=== PATIENT | male | born 1965 | race Caucasian/White ===

== ENCOUNTER 2019-08-14 11:30 | Inpatient (IN) | payer BC ==
[2019-08-14] VITALS (9 sets, daily range): BP systolic 113–153; BP diastolic 75–98
[~2019-08-14] VITALS: Ht 180 cm; Wt 92.5 kg
[2019-08-14] MEDS ORDERED: NS IV 1000 ML 1,000 ML IV SCH (11:44)
[2019-08-14] MEDS ORDERED: NS IV 1000 ML 1,000 ML IV ONE (11:44)
[2019-08-14] MEDS ORDERED: NS IV 500 ML 500 ML IV ONE (11:44)
[2019-08-14] MEDS ORDERED: AZITHROMYCIN INJECTION 500 MG in NS (IVPB) 250 ML IV ONE (11:45)
[2019-08-14] MEDS ORDERED: cefTRIAXone FOR IV USE 1,000 MG in WATER (STERILE) FOR INJECTION 10 ML IV ONE (11:45)
--- NOTE | 2019-08-14 11:50 | ED Chest Pain ---
General Chief Complaint: Cardiac/General Problems Stated Complaint: CP Source: patient, EMS Exam Limitations: no limitations History of Present Illness Date Seen by Provider: Aug 14, 2019 Time Seen by Provider: 11:29 Initial Comments Patient presents to ER by EMS from urgent care where he presented this morning because of for 5 days progressive malaise with fever yesterday. Today he started experiencing left-sided chest pain radiating to his left shoulder but not his neck area and no sweats nausea or vomiting. No previous history of coronary disease. Does not follow with a doctor nor take any routine medications. He quit smoking 4 months ago when his . He drinks beer and whiskey usually daily but he says only a couple drinks in the evening. Urgent care obtain an EKG demonstrating atrial fibrillation with rapid ventricular response and gave him 325 mg of aspirin. He said his pain was not significant enough to want anything for nitroglycerin. Vital signs were stable per EMS. He says he's been told in the past he has high blood pressure when he goes to the health fair at his work. Allergies and Home Medications Allergies Coded Allergies: levofloxacin (Verified Adverse Reaction, Unknown, nausea, vomiting, shaking, 08/14/19) Patient Home Medication List Home Medication List Reviewed: Yes Review of Systems Review of Systems Constitutional: chills, fever (yesterday), malaise, weakness EENTM: No Blurred Vision, No Double Vision Respiratory: Cough; Denies Shortness of Air Cardiovascular: See HPI, Chest Pain; Denies Edema; Irregular Heart Rate, Palpitations; Denies Syncope Gastrointestinal: Denies Abdomen Distended, Denies Abdominal Pain Genitourinary: Denies Burning, Denies Discharge Musculoskeletal: No back pain, No joint pain Skin: No pruritus, No rash Psychiatric/Neurological: Denies Headache, Denies Numbness, Denies Paresthesia All Other Systems Reviewed Negative Unless Noted: Yes Past Kqntiyp-Zrfvby-Jfgusz Hx Patient Social History Alcohol Use: Regular Use Alcohol Beverage of Choice: Beer, Whiskey Recreational Drug Use: No Smoking Status: Former Smoker Type Used: Cigarettes Former Smoker, Quit: Mar 26, 2019 Physical Exam Vital Signs Vital Signs - First Documented 08/14/19 11:49 Temp 36.6 Pulse 156 Resp 22 B/P (MAP) 131/100 (110) Pulse Ox 97 Capillary Refill : Height, Weight, BMI Height: '" Weight: lbs. oz. kg; BMI Method: General Appearance: WD/WN, Anxious HEENT: PERRL/EOMI, Pharynx Normal; No Moist Mucous Membranes Neck: Full Range of Motion, Normal Inspection, Non Tender, Supple Respiratory: Chest Non Tender, No Accessory Muscle Use, No Respiratory Distress, Rales (few scattered bases) Cardiovascular: No JVD, Normal Peripheral Pulses, Irregularly Irregular, Tachycardia Gastrointestinal: Normal Bowel Sounds, Non Tender, Soft Extremity: Normal Capillary Refill, Normal Inspection, Non Tender, No Pedal Edema Neurologic/Psychiatric: Alert, Oriented x3 Skin: Normal Color, Warm/Dry Focused Exam Sepsis Stage: Sepsis Possible Source: Pulmonary Lactate Level 08/14/19 11:45: Lactic Acid Level 1.46 Time of Focused Exam: 13:17 Respiratory: Lungs Clear, Normal Breath Sounds Cardiovascular: Irregularly Irregular, Tachycardia Capillary Refill: Less Than 3 Seconds Peripheral Pulses: 2+ Radial Pulses (R), 2+ Radial Pulses (L) Skin: normal color, warm/dry Lactic Acid Level Laboratory Tests Test 08/14/19 11:45 Lactic Acid Level 1.46 MMOL/L (0.50-2.00) Within 3hrs of presentation: Admin fluids, Admin ABX, Blood cultures prior to ABX's, Focus exam, Lactate level Progress/Results/Core Measures Results/Orders Lab Results Laboratory Tests Test 08/14/19 11:36 08/14/19 11:45 08/14/19 12:25 Range/Units White Blood Count 23.5 H 4.3-11.0 10^3/uL Red Blood Count 5.41 4.35-5.85 10^6/uL Hemoglobin 16.4 13.3-17.7 G/DL Hematocrit 49 40-54 % Mean Corpuscular Volume 91 80-99 FL Mean Corpuscular Hemoglobin 30 25-34 PG Mean Corpuscular Hemoglobin Concent 33 32-36 G/DL Red Cell Distribution Width 12.6 10.0-14.5 % Platelet Count 208 130-400 10^3/uL Mean Platelet Volume 11.5 H 7.4-10.4 FL Neutrophils (%) (Auto) 77 H 42-75 % Lymphocytes (%) (Auto) 11 L 12-44 % Monocytes (%) (Auto) 11 0-12 % Eosinophils (%) (Auto) 0 0-10 % Basophils (%) (Auto) 0 0-10 % Neutrophils # (Auto) 18.2 H 1.8-7.8 X 10^3 Lymphocytes # (Auto) 2.6 1.0-4.0 X 10^3 Monocytes # (Auto) 2.6 H 0.0-1.0 X 10^3 Eosinophils # (Auto) 0.0 0.0-0.3 10^3/uL Basophils # (Auto) 0.0 0.0-0.1 10^3/uL Neutrophils % (Manual) 85 % Lymphocytes % (Manual) 9 % Monocytes % (Manual) 6 % Blood Morphology Comment NORMAL Prothrombin Time 14.6 12.2-14.7 SEC INR Comment 1.1 0.8-1.4 Activated Partial Thromboplast Time 32 24-35 SEC Sodium Level 139 135-145 MMOL/L Potassium Level 4.3 3.6-5.0 MMOL/L Chloride Level 106 98-107 MMOL/L Carbon Dioxide Level 23 21-32 MMOL/L Anion Gap 10 5-14 MMOL/L Blood Urea Nitrogen 18 7-18 MG/DL Creatinine 0.90 0.60-1.30 MG/DL Estimat Glomerular Filtration Rate > 60 BUN/Creatinine Ratio 20 Glucose Level 116 H 70-105 MG/DL Calcium Level 9.7 8.5-10.1 MG/DL Corrected Calcium 9.9 8.5-10.1 MG/DL Total Bilirubin 1.3 H 0.1-1.0 MG/DL Aspartate Amino Transf (AST/SGOT) 16 5-34 U/L Alanine Aminotransferase (ALT/SGPT) 27 0-55 U/L Alkaline Phosphatase 132 40-136 U/L Troponin I < 0.028 <0.028 NG/ML Total Protein 7.0 6.4-8.2 GM/DL Albumin 3.8 3.2-4.5 GM/DL Lactic Acid Level 1.46 0.50-2.00 MMOL/L Urine Color YELLOW Urine Clarity CLEAR Urine pH 6.0 5-9 Urine Specific [place] >=1.030 1.016-1.022 Urine Protein TRACE H NEGATIVE Urine Glucose (UA) NEGATIVE NEGATIVE Urine Ketones NEGATIVE NEGATIVE Urine Nitrite NEGATIVE NEGATIVE Urine Bilirubin 1+ H NEGATIVE Urine Urobilinogen 4.0 < = 1.0 MG/DL Urine Leukocyte Esterase NEGATIVE NEGATIVE Urine RBC (Auto) NEGATIVE NEGATIVE Urine RBC NONE /HPF Urine WBC NONE /HPF Urine Crystals PRESENT H /LPF Urine Amorphous Sediment FEW KASEY URATES H /LPF Urine Bacteria FEW H /HPF Urine Casts NONE /LPF Urine Mucus MODERATE H /LPF Urine Culture Indicated CULTURE PENDING Micro Results Microbiology 08/14/19 Influenza Types A,B Antigen (QING) - Final, Complete My Orders Orders - MEGHAN KING Cbc With Automated Diff (08/14/19 11:42) Comprehensive Metabolic Panel (08/14/19 11:42) Blood Culture (08/14/19 11:42) Sputum Culture (08/14/19 11:42) Urinalysis (08/14/19 11:42) Urine Culture (08/14/19 11:42) Protime With Inr (08/14/19 11:42) Partial Thromboplastin Time (08/14/19 11:42) Chest 1 View, Ap/Pa Only (08/14/19 11:42) Ed Iv/Invasive Line Start (08/14/19 11:42) Ed Iv/Invasive Line Start (08/14/19 11:42) Vital Signs Adult Sepsis Patie Q15M (08/14/19 11:42) O2 (08/14/19 11:42) Remove Rings In Anticipation O (08/14/19 11:42) Lactic Acid Analyzer (08/14/19 11:42) Ed Iv/Invasive Line Start (08/14/19 11:42) Ed Iv/Invasive Line Start (08/14/19 11:44) Ns Iv 500 Ml (Sodium Chloride 0.9%) (08/14/19 11:44) Ns Iv 1000 Ml (Sodium Chloride 0.9%) (08/14/19 11:44) Ns Iv 1000 Ml (Sodium Chloride 0.9%) (08/14/19 11:44) Ceftriaxone For Iv Use (Rocephin For I (08/14/19 11:45) Azithromycin Injection (Zithromax Inject (08/14/19 11:45) Manual Differential (08/14/19 11:36) Influenza A And B Antigens (08/14/19 12:36) Troponin I (08/14/19 13:07) Nitroglycerin 0.4 Mg Btl 25's (Nitrostat (08/14/19 13:15) Diltiazem Drip Pre-Mix (Cardizem Drip Pr (08/14/19 13:15) Diltiazem Injection (Cardizem Injection) (08/14/19 13:15) Morphine Injection (Morphine Injection (08/14/19 13:10) Apixaban Tablet (Eliquis Tablet) (08/14/19 13:30) Continuous Ekg Monitoring (08/14/19 13:21) Ekg Tracing (08/14/19 13:21) Ekg Tracing (08/14/19 13:46) Medications Given in ED Current Medications Medications Dose Ordered Sig/Kolby Route Start Time Stop Time Status Last Admin Dose Admin Apixaban 5 mg ONCE ONCE PO 08/14/19 13:30 08/14/19 13:31 DC 08/14/19 13:32 5 MG Azithromycin 500 mg/Sodium Chloride 250 ml @ 250 mls/hr ONCE ONCE IV 08/14/19 11:45 08/14/19 12:44 DC 08/14/19 12:33 250 MLS/HR Ceftriaxone Sodium 1000 mg/ Sterile Water 10 ml @ 200 mls/hr ONCE ONCE IV 08/14/19 11:45 08/14/19 11:48 DC 08/14/19 12:33 200 MLS/HR Diltiazem HCl 20 mg ONCE ONCE IVP 08/14/19 13:15 08/14/19 13:16 DC 08/14/19 13:32 20 MG Sodium Chloride 500 ml @ 0 mls/hr Q0M ONCE IV 08/14/19 11:44 08/14/19 11:48 DC 08/14/19 13:49 0 MLS/HR Vital Signs/I&O 08/14/19 11:49 Temp 36.6 Pulse 156 Resp 22 B/P (MAP) 131/100 (110) Pulse Ox 97 Progress Progress Note #1: Time: 12:33 Progress Note Patient still does not want anything for chest pain. Aspirin has already been administered. We have discussed risks, benefits and alternatives to anticoagulation and patient has consented. We have discussed that we are going to look for underlying source of his A. fib to include coronary and infection. Influenza swab obtained. Septic workup and fluids 2500 cc total to be given. He has already had a liter started by EMS. Progress Note #2: Time: 13:27 Progress Note The patient's having worsening chest pain in his left chest worse on deep inspiration and lancinating from his left shoulder towards his mediastinum. Plan to give him morphine. Since we started the Cardizem drip as he is not responding to just IV fluids alone I would like to protect his blood pressure and not give him nitroglycerin. Blood pressure is 129/97 presently. We will give him some Eliquis as well. He is already received aspirin. Still afebrile. Progress Note #3: Time: 13:55 Progress Note Patient's pain is improved with morphine. Suspect that it may be related to pleurisy. Patient's heart rate is now better stable, regular rate of 86 and an EKG was obtained demonstrating a regular rhythm. Initial ECG Impression Date: Aug 14, 2019 Initial ECG Impression Time: 11:36 Initial ECG Rate: 144 Initial ECG Rhythm: A Fib/Flutter Initial ECG Intervals: QT (471) Initial ECG Impression: Normal, Nonspecific Changes Initial ECG Comparisson: No Previous ECG Available Comment Atrial fibrillation with rapid ventricular response. EKG #1: EKG Time: 13:25 Rate: 136 Rhythm: A Fib/Flutter Intervals: QT (470) ECG Comparisson: Unchanged ECG Impression: Atrial Fibrillation w/RVR Comment Without credible ST elevation or depression. Atrial fibrillation and rapid ventricular response. EKG #2: EKG Time: 13:42 Rate: 87 Rhythm: Normal Sinus Intervals: Normal, QT (535) ECG Comparisson: No Previous ECG Available ECG Impression: Normal, Nonspecific Changes Comment Sinus rhythm with prolonged QT interval. Negative for clinically relevant ST elevation or depression. Patient has a tremor which is picked up on the EKG and have similar appearance to atrial flutter. Diagnostic Imaging Diagonstic Imaging: Xray Plain Films/CT/US/NM/MRI: chest (1v) Comments NAME: MAY MERCADO MED REC#: [id number] PT STATUS: REG ER : 1965 PHYSICIAN: MEGHAN KING MD ADMIT DATE: 08/14/19/ER Signed Date of Exam:08/14/19 CHEST 1 VIEW, AP/PA ONLY Indication: Chest pain Portable chest 12:15 PM Heart size and pulmonary vascularity are normal. Lungs are clear. There are no effusions or pneumothoraces. IMPRESSION: Negative chest Dictated by: Dictated on workstation # [id number] Dict: 08/14/19 1227 Trans: 08/14/19 1227 [id number] Interpreted by: ALVARO ARAYA MD Electronically signed by: ALVARO ARAYA MD 08/14/197 Reviewed: Reviewed by Me Departure Communication (Admissions) Time/Spoke to Admitting Phy: 14:00 Discussed case lab imaging and selection of antibiotics as well as placed on stepdown on Cardizem for A. fib with RVR with Dr. Perkins and he agrees to admit the patient. Time/Spoke to Consulting Phy: 13:15 Discussed the case lab presentation with Dr. Amezquita and he agrees with Jovany Ching drip and aspirin. He will consult on the patient. Impression Primary Impression: Chest pain Qualified Codes: R07.9 - Chest pain, unspecified Additional Impressions: Atrial fibrillation with rapid ventricular response Pneumonia Qualified Codes: J18.9 - Pneumonia, unspecified organism Sepsis Qualified Codes: A41.9 - Sepsis, unspecified organism Disposition: ADMITTED INPATIENT Condition: Stable Admissions Decision to Admit Reason: Admit from ER (General) Decision to Admit/Date: Aug 14, 2019 Time/Decision to Admit Time: 13:14 Departure-Patient Inst. Referrals: KATLYN LANCASTER (PCP) Primary Care Physician TRINO,LOCAL PHYSICIAN (Family) Primary Care Physician MEGHAN KING Aug 14, 2019 11:50
[2019-08-14 11:51] LABS: BASOPHILS % (AUTO) 0 % (0-10); EOSINOPHILS % (AUTO) 0 % (0-10); HEMATOCRIT 49 % (40-54); HEMOGLOBIN 16.4 G/DL (13.3-17.7); LYMPHOCYTES # (AUTO) 2.6 X 10^3 (1.0-4.0); LYMPHOCYTES % (AUTO) 11 % (12-44); MEAN CORPUSCULAR HEMOGLOBIN 30 PG (25-34); MEAN CORPUSCULAR HGB CONC 33 G/DL (32-36); MEAN CORPUSCULAR VOLUME 91 FL (80-99); MEAN PLATELET VOLUME 11.5 FL (7.4-10.4); MONOCYTES # (AUTO) 2.6 X 10^3 (0.0-1.0); MONOCYTES % (AUTO) 11 % (0-12); NEUTROPHILS # (AUTO) 18.2 X 10^3 (1.8-7.8); NEUTROPHILS % (AUTO) 77 % (42-75); PLATELET COUNT 208 10^3/uL (130-400); RED CELL DISTRIBUTION WIDTH 12.6 % (10.0-14.5); WHITE BLOOD COUNT 23.5 10^3/uL (4.3-11.0)
[2019-08-14 12:05] LABS: INR 1.1 (0.8-1.4); PROTHROMBIN TIME PATIENT 14.6 SEC (12.2-14.7)
[2019-08-14] MEDS ORDERED: BUPR150T7 PO (12:10)
[2019-08-14 12:11] LABS: ALANINE AMINOTRANSFERASE 27 U/L (0-55); ALBUMIN 3.8 GM/DL (3.2-4.5); ALKALINE PHOSPHATASE 132 U/L (40-136); BILIRUBIN,TOTAL 1.3 MG/DL (0.1-1.0); BUN/CREATININE RATIO 20; CALCIUM 9.7 MG/DL (8.5-10.1); CARBON DIOXIDE 23 MMOL/L (21-32); CHLORIDE 106 MMOL/L (98-107); GFR ESTIMATED > 60; GLUCOSE 116 MG/DL (70-105); POTASSIUM 4.3 MMOL/L (3.6-5.0); SODIUM 139 MMOL/L (135-145)
--- NOTE | 2019-08-14 12:29 | Diagnostic Imaging Report ---
Indication: Chest pain Portable chest 12:15 PM Heart size and pulmonary vascularity are normal. Lungs are clear. There are no effusions or pneumothoraces. IMPRESSION: Negative chest Dictated by: Dictated on workstation # [id number]
[2019-08-14 12:30] LABS: CLARITY,URINE CLEAR; COLOR,URINE YELLOW; GLUCOSE, URINE (UA) NEGATIVE (NEGATIVE); KETONES,URINE NEGATIVE (NEGATIVE); LEUKOCYTE ESTERASE ,URINE NEGATIVE (NEGATIVE); NITRITE,URINE NEGATIVE (NEGATIVE); PROTEIN,URINE TRACE (NEGATIVE)
[2019-08-14 12:31] LABS: LYMPHOCYTES % (MANUAL) 9 %; MONOCYTES % (MANUAL) 6 %; NEUTROPHILS % (MANUAL) 85 %; RBC MORPH NORMAL
[2019-08-14 12:46] LABS: BACTERIA,URINE FEW /HPF
[2019-08-14 12:47] LABS: AMORPHOUS SEDIMENT,UR FEW AMOR URATES /LPF; BILIRUBIN,URINE 1+ (NEGATIVE)
[2019-08-14] MEDS ORDERED: morphine INJ 10 MG/ML 1ML (SYR OR VIAL) IVP STA (13:10)
[2019-08-14] MEDS ORDERED: NITROGLYCERIN 0.4 MG SL TABS BTL 25'S SL PRN ×2 (13:15→15:15)
[2019-08-14] MEDS ORDERED: APIXABAN 5 MG (ELIQUIS) TABLET PO ONE (13:30)
[2019-08-14] MEDS: dilTIAZem DRIP PRE-MIX 125 ML IV SCH ×2 (13:32→13:49)
[2019-08-14] MEDS ORDERED: 1/2 NS W/KCL 20 MEQ/L 1,000 ML IV ONE (14:53)
[2019-08-14] MEDS ORDERED: ONDANSETRON 4 MG/2 ML (SDV) Z0FRAN IV PRN (15:00)
[2019-08-14] MEDS ORDERED: CATHETER FLUSH 10 ML SYR IV PRN (15:00)
[2019-08-14] MEDS ORDERED: LORazepam INJ 2 MG/ML (ATIVAN) VIAL IV PRN (15:00)
[2019-08-14] MEDS ORDERED: ACETAMINOPHEN 500 MG TAB (TYLENOL) PO PRN (15:00)
[2019-08-14] MEDS ORDERED: morphine INJ 4 MG/ML 1 ML (VIAL/SYRINGE) IV PRN (15:15)
[2019-08-14] MEDS ORDERED: ANTACID SUSP 30 ML UDC (MYLANTA) PO PRN (15:15)
[2019-08-14] MEDS: 1/2 NS W/KCL 20 MEQ/L 1,000 ML IV SCH ×2 (15:47→21:22)
--- NOTE | 2019-08-14 16:24 | NUR ---
ENTERED MED REC USING THE EXT MED HISTORY WELL CALLING URGENT CARE (HE USES THE MOBILE PROVIDER) TO COMPLETE THE MED REC. WELLBUTRIN 150 HAS BEEN PICKED UP RECENTLY HOWEVER THE PT HAS ALSO TAKEN WELLBUTRIN 300MG AND THAT WAS PICKED UP WITHIN THE LAST MONTH. I PUT IN A CALL TO URGENT CARE TO MAKE SURE THE LOWER DOSE WAS CORRECT AND TO SEE IF THE INTENTION WAS FOR THE PT TO TAKE BOTH STRENGTHS. URGENT CARE WAS GOING TO CALL ME BACK SOON THEY COULD FIND OUT. I WILL UPDATE THE MED REC AND THE NOTE IF NEEDED Addendum: 08/16/19 at 0718 by KAMALJIT BERNAL CPhT SPOKE WITH AND HE CONFIRMED THAT THE PT HAD BEEN SWITCHED FROM THE 300MG DOWN TO THE 150MG BC THE PT IS WANTING TO QUIT TAKING AND THEY ARE EVENTUALLY GOING TO WEAN HIM OFF
--- NOTE | 2019-08-14 16:29 | Consultation-Cardiology ---
HPI-Cardiology Cardiology Consultation: Date of Consultation 08/14/19 Time Seen by a Provider: 16:05 Date of Admission 08-14-2019 Attending Physician Daxa Perkins MD Admitting Physician Cara Hernandez Consulting Physician DIAMOND VUONG HPI: Chief Complaint: A-fib with RVR Mr. Stokes is a 54 year old male admitted to ICU 2 from the ED. He reports he has been feeling unwell since Monday. [place] friend and had a sudden onset of left sided chest pain. He describes it has a sharp, stabbing, pressure pain which was worse with a cough. He states it radiated up into his shoulder. He reports feeling hot and diaphoretic. He states he it has been constant discomfort, which would increase in intensity. No r/t activity or emotional stress. He reports on Monday he developed chills and fever. He reports dysuria on Monday night, but this has resolved. He reports nausea and diarrhea since Monday. He denies any vomiting. He is currently reporting discomfort, localized left sided, with movement. No c/o LE swelling. No c/o syncope or near syncope. States he quit smoking 4 months ago. Reports he drinks nightly, typically 2 beers and occ whiskey. No report of street drug use. Review of Systems-Cardiology Review of Systems Constitutional: chills, fever, malaise Eyes: No vision change Ears/Nose/Throat: No epistaxis, No recent hearing loss, No ulcerations Respiratory: As described under HPI Cardiovascular: As described under HPI Gastrointestinal: As described under HPI Genitourinary: As described under HPI; No hematuria Musculoskeletal: no symptoms reported Skin: No rash on exposed areas, No ulcerations on exposed areas Psychiatric/Neurological: depression; No seizure, No focal weakness, No syncope Hematologic: No bleeding abnormalities All Other Systems Reviewed Negative Unless Noted: Yes URS-Rvxjnp-Urwiwb Hx Patient Social History Alcohol Use: Regular Use Recreational Drug Use: No Smoking Status: Former Smoker Type Used: Cigarettes Recent Foreign Travel: No Recent Infectious Disease Expo: No Immunizations Up To Date Date of Influenza Vaccine: Apr 26, 2019 Past Medical History PMH As described under Assessment. Family Medical History Family Medical History: He reports his mother has CAD with stent placement first diagnosed in her 60's. Allergies and Home Medications Allergies Coded Allergies: levofloxacin (Verified Adverse Reaction, Unknown, nausea, vomiting, shaking, 08/14/19) Home Medications Bupropion HCl 150 Mg Tab.er.24h, 150 MG PO DAILY, (Reported) Patient Home Medication List Home Medication List Reviewed: Yes Physical Exam-Cardiology Physical Exam Vital Signs/I&O 08/15/19 08/15/19 08/15/19 08/15/19 01:00 02:00 04:00 04:00 Temp 36.3 Pulse 75 77 79 Resp 30 29 B/P (MAP) 137/96 (110) 124/88 (100) Pulse Ox 97 97 O2 Delivery Nasal Cannula Nasal Cannula O2 Flow Rate 2.00 2.00 08/15/19 08/15/19 08/15/19 08/15/19 04:27 06:00 06:52 07:00 Pulse 72 74 Resp 32 B/P (MAP) 138/85 (102) Pulse Ox 97 95 O2 Delivery Nasal Cannula Nasal Cannula Room Air O2 Flow Rate 2.00 2.00 08/15/19 08/15/19 08/15/19 08/15/19 07:00 08:00 08:00 09:00 Pulse 79 82 Resp 32 20 B/P (MAP) 141/84 (103) 126/76 (93) Pulse Ox 95 96 97 O2 Delivery Nasal Cannula Nasal Cannula Nasal Cannula Room Air O2 Flow Rate 2.00 2.00 2.00 08/15/19 08/15/19 08/15/19 08/15/19 09:00 10:00 10:42 11:13 Pulse 78 78 Resp 30 23 B/P (MAP) 133/88 (103) 149/87 (107) Pulse Ox 96 98 95 O2 Delivery Nasal Cannula Nasal Cannula Room Air Room Air O2 Flow Rate 2.00 2.00 08/15/19 12:00 Pulse 90 Resp 27 B/P (MAP) 162/95 (117) Pulse Ox 96 O2 Delivery Room Air 08/15/19 00:00 Intake Total 3610 ml Output Total 430 ml Balance 3180 ml Capillary Refill : Less Than 3 Seconds Constitutional: AAO x 3, well-developed, well-nourished HEENT: PERRL, hearing is well preserved, oral hygience is good Neck: No carotid bruit; carotid pulses are 2 + bilaterally Respiratory: No accessory muscle use, No respiratory distress; chest expansion is symmetric, chest is bilaterally symmetric, rhonchi (scattered), other (diminshed) Cardiovascular: irregularly irregular; No JVD; S1 and S2 Gastrointestinal: No tender; soft, round, audible bowel sounds Extremities: no lower extremity edema bilateral Neurologic/Psychiatric: grossly intact (moves all extremities) Skin: No rash on exposed areas, No ulcerations on exposed areas Data Review Labs Laboratory Tests 08/14/19 17:35: Troponin I < 0.028 08/15/19 03:09: White Blood Count 18.1H, Red Blood Count 4.49, Hemoglobin 13.9, Hematocrit 41, Mean Corpuscular Volume 92, Mean Corpuscular Hemoglobin 31, Mean Corpuscular Hemoglobin Concent 34, Red Cell Distribution Width 12.8, Platelet Count 195, Mean Platelet Volume 11.7H, Neutrophils (%) (Auto) 72, Lymphocytes (%) (Auto) 18, Monocytes (%) (Auto) 10, Eosinophils (%) (Auto) 1, Basophils (%) (Auto) 0, Neutrophils # (Auto) 13.0H, Lymphocytes # (Auto) 3.2, Monocytes # (Auto) 1.8H, Eosinophils # (Auto) 0.1, Basophils # (Auto) 0.0, Sodium Level 135, Potassium Level 4.5, Chloride Level 108H, Carbon Dioxide Level 18L, Anion Gap 9, Blood Urea Nitrogen 15, Creatinine 0.69, Estimat Glomerular Filtration Rate > 60, BUN/Creatinine Ratio 22, Glucose Level 95, Calcium Level 8.5, Corrected Calcium 9.1, Phosphorus Level 1.6L, Total Bilirubin 0.8, Aspartate Amino Transf (AST/SGOT) 18, Alanine Aminotransferase (ALT/SGPT) 20, Alkaline Phosphatase 119, B-Type Natriuretic Peptide 73.5, Total Protein 5.8L, Albumin 3.3, Triglycerides Level 91, Cholesterol Level 129, LDL Cholesterol Direct 70, VLDL Cholesterol 18, HDL Cholesterol 39L, Procalcitonin 0.29H, Thyroid Stimulating Hormone (TSH) 0.85 08/15/19 08:14: Urine Opiates Screen POSITIVEH, Urine Oxycodone Screen NEGATIVE, Urine Methadone Screen NEGATIVE, Urine Propoxyphene Screen NEGATIVE, Urine Barbiturates Screen NEGATIVE, Ur Tricyclic Antidepressants Screen NEGATIVE, Urine Phencyclidine S creen NEGATIVE, Urine Amphetamines Screen NEGATIVE, Urine Methamphetamines Screen NEGATIVE, Urine Benzodiazepines Screen POSITIVEH, Urine Cocaine Screen NEGATIVE, Urine Cannabinoids Screen POSITIVEH Microbiology 08/14/19 Urine Culture - Final, Complete NO GROWTH 08/14/19 Blood Culture - Preliminary, Resulted No growth 08/14/19 Influenza Types A,B Antigen (QING) - Final, Complete Radiology NAME: MAY STOKES MED REC#: [id number] PT STATUS: REG ER : 1965 PHYSICIAN: MEGHAN KING MD ADMIT DATE: 08/14/19/ER Signed Date of Exam:08/14/19 CHEST 1 VIEW, AP/PA ONLY Indication: Chest pain Portable chest 12:15 PM Heart size and pulmonary vascularity are normal. Lungs are clear. There are no effusions or pneumothoraces. IMPRESSION: Negative chest Dictated by: Dictated on workstation # [id number] Dict: 08/14/19 1227 Trans: 08/14/19 1227 [id number] Interpreted by: ALVARO ARAYA MD Electronically signed by: ALVARO ARAYA MD 08/14/19 1227 ECG Impression ECG Initial ECG Impression: Atrial Fibrillation w/RVR A/P-Cardiology Assessment/Admission Diagnosis New onset a-fib with RVR (first dx on EKG 08-14-2019) Chest pain of undetermined etiology Probable UTI HTN HLD Tobacco use - quit 4 months ago Daily ETOH usage Depression Discussion and Recomendations New onset of a-fib with RVR - rate control with IV Cardizem OAC for stroke prophylaxis with Eliquis Chest pain of undetermined etiology - no evidence of ACS thus far Echocardiogram to eval structure and function Check TSH Monitor lab - replace electrolytes as indicated Management of UTI per medical services Further recs will be based on his hospital course We would like to thank medical services for this consult Clinical Quality Measures DVT/VTE Risk/Contraindication: Risk Factor Score Per Nursin RFS Level Per Nursing on Admit: 4+=Very High DIAMOND PRESSLEY Aug 14, 2019 16:29
--- NOTE | 2019-08-14 18:32 | Consultation-Cardiology ---
HPI-Cardiology Cardiology Consultation: Date of Consultation 08/14/19 Time Seen by a Provider: 17:50 Date of Admission Attending Physician Daxa Perkins MD Admitting Physician Cara Hernandez Consulting Physician VIVIENNE WRIGHT MD, MA, FACP, FACC, FSCAI, CCDS HPI: Chief Complaint: Reason for consultation: A-fib with RVR HPI Mr. Stokes is a 54 year old male admitted to ICU 2 from the ED. He reports he has been feeling unwell since Monday. [place] his girl friend and had a sudden onset of left sided chest pain. He describes it has a sharp, stabbing, pressure pain which was worse with a cough. He states it radiated up into his shoulder. He reports feeling hot and diaphoretic. He states he it has been constant discomfort, which would increase in intensity. No r/t activity or emotional stress. He reports on Monday he developed chills and fever. He reports dysuria on Monday night, but this has resolved. He reports nausea and diarrhea since Monday. He denies any vomiting. He is currently reporting discomfort, localized left sided, with movement. No c/o LE swelling. No c/o syncope or near syncope. States he quit smoking 4 months ago. Reports he drinks nightly, typically 2 beers and occ whiskey. No report of street drug use. Review of Systems-Cardiology Review of Systems Constitutional: chills, fever, malaise Eyes: No vision change Ears/Nose/Throat: No epistaxis, No recent hearing loss, No ulcerations Respiratory: As described under HPI Cardiovascular: As described under HPI Gastrointestinal: As described under HPI Genitourinary: As described under HPI; No hematuria Musculoskeletal: no symptoms reported Skin: No rash on exposed areas, No ulcerations on exposed areas Psychiatric/Neurological: depression; No seizure, No focal weakness, No syncope Hematologic: No bleeding abnormalities All Other Systems Reviewed Negative Unless Noted: Yes LQG-Hwioml-Grzgky Hx Patient Social History Alcohol Use: Regular Use Recreational Drug Use: No Smoking Status: Former Smoker Type Used: Cigarettes Recent Foreign Travel: No Recent Infectious Disease Expo: No Immunizations Up To Date Date of Influenza Vaccine: Apr 26, 2019 Past Medical History PMH As described under Assessment. Family Medical History Family Medical History: He reports his mother has CAD with stent placement first diagnosed in her 60's. Allergies and Home Medications Allergies Coded Allergies: levofloxacin (Verified Adverse Reaction, Unknown, nausea, vomiting, shaking, 08/14/19) Home Medications Bupropion HCl 150 Mg Tab.er.24h, 150 MG PO DAILY, (Reported) Patient Home Medication List Home Medication List Reviewed: Yes Physical Exam-Cardiology Physical Exam Vital Signs/I&O 08/14/19 08/14/19 08/14/19 08/14/19 11:49 14:42 14:54 15:00 Temp 36.6 Pulse 156 115 119 Resp 22 20 B/P (MAP) 131/100 (110) 140/80 Pulse Ox 97 97 98 O2 Delivery Nasal Cannula O2 Flow Rate 2.00 08/14/19 08/14/19 08/14/19 08/14/19 15:00 15:00 15:04 15:42 Temp 36.6 Pulse 89 115 Resp 18 20 B/P (MAP) 125/86 (99) 140/80 Pulse Ox 98 97 98 O2 Delivery Nasal Cannula Nasal Cannula Nasal Cannula Nasal Cannula O2 Flow Rate 2.00 2.00 2.00 2.00 08/14/19 08/14/19 08/14/19 08/14/19 15:44 16:00 17:00 18:00 Temp 37.1 Pulse 105 98 85 Resp 39 32 31 B/P (MAP) 153/98 (116) 145/97 (113) 126/76 (93) Pulse Ox 86 96 97 O2 Delivery Nasal Cannula Nasal Cannula Nasal Cannula O2 Flow Rate 2.00 2.00 2.00 Capillary Refill : Less Than 3 Seconds Constitutional: AAO x 3, well-developed, well-nourished HEENT: PERRL, hearing is well preserved, oral hygience is good Neck: No carotid bruit; carotid pulses are 2 + bilaterally Respiratory: No accessory muscle use, No respiratory distress; chest expansion is symmetric, chest is bilaterally symmetric, rhonchi (scattered), other (diminshed) Cardiovascular: irregularly irregular; No JVD; S1 and S2 Gastrointestinal: No tender; soft, round, audible bowel sounds Extremities: no lower extremity edema bilateral Neurologic/Psychiatric: grossly intact (moves all extremities) Skin: No rash on exposed areas, No ulcerations on exposed areas Data Review Labs Laboratory Tests 08/14/19 11:36: White Blood Count 23.5H, Red Blood Count 5.41, Hemoglobin 16.4, Hematocrit 49, Mean Corpuscular Volume 91, Mean Corpuscular Hemoglobin 30, Mean Corpuscular Hemoglobin Concent 33, Red Cell Distribution Width 12.6, Platelet Count 208, Mean Platelet Volume 11.5H, Neutrophils (%) (Auto) 77H, Lymphocytes (%) (Auto) 11L, Monocytes (%) (Auto) 11, Eosinophils (%) (Auto) 0, Basophils (%) (Auto) 0, Neutrophils # (Auto) 18.2H, Lymphocytes # (Auto) 2.6, Monocytes # (Auto) 2.6H, Eosinophils # (Auto) 0.0, Basophils # (Auto) 0.0, Neutrophils % (Manual) 85, Lymphocytes % (Manual) 9, Monocytes % (Manual) 6, Blood Morphology Comment NORMAL, Prothrombin Time 14.6, INR Comment 1.1, Activated Partial Thromboplast Time 32, Sodium Level 139, Potassium Level 4.3, Chloride Level 106, Carbon Dioxide Level 23, Anion Gap 10, Blood Urea Nitrogen 18, Creatinine 0.90, Estimat Glomerular Filtration Rate > 60, BUN/Creatinine Ratio 20, Glucose Level 116H, Calcium Level 9.7, Corrected Calcium 9.9, Total Bilirubin 1.3H, Aspartate Amino Transf (AST/SGOT) 16, Alanine Aminotransferase (ALT/SGPT) 27, Alkaline Phosphatase 132, Troponin I < 0.028, Total Protein 7.0, Albumin 3.8 08/14/19 11:45: Lactic Acid Level 1.46 08/14/19 12:25: Urine Color YELLOW, Urine Clarity CLEAR, Urine pH 6.0, Urine Specific [place] >=1.030, Urine Protein TRACEH, Urine Glucose (UA) NEGATIVE, Urine Ketones NEGATIVE, Urine Nitrite NEGATIVE, Urine Bilirubin 1+H, Urine Urobilinogen 4.0, Urine Leukocyte Esterase NEGATIVE, Urine RBC (Auto) NEGATIVE, Urine RBC NONE, Urine WBC NONE, Urine Crystals PRESENTH, Urine Amorphous Sediment FEW KASEY URATESH, Urine Bacteria FEWH, Urine Casts NONE, Urine Mucus MODERATEH, Urine Culture Indicated CULTURE PENDING 08/14/19 17:35: Troponin I < 0.028 Microbiology 08/14/19 Blood Culture - Preliminary, Resulted No growth 08/14/19 Influenza Types A,B Antigen (QING) - Final, Complete Laboratory Tests 08/14/19 11:36 A/P-Cardiology Assessment/Admission Diagnosis New onset a-fib/flutter with RVR (first dx on EKG 08-14-2019) Chest pain of undetermined etiology, no evidence of ACS so far Systemic infection (as indicated by fever and leucocytosis) managed by the Hospitalist service HTN HLD Tobacco use - quit 4 months ago Daily ETOH usage Depression Discussion and Recomendations * Rate control with IV Cardizem * OAC for stroke prophylaxis with Eliquis * Echocardiogram to eval structure and function * Check TSH * Monitor lab - replace electrolytes as indicated * Management of UTI per Hospitalist/Medical service * Further recs will be based on his hospital course * We would like to thank Medical services for this consult Clinical Quality Measures DVT/VTE Risk/Contraindication: Risk Factor Score Per Nursin RFS Level Per Nursing on Admit: 4+=Very High VIVIENNE WRIGHT MD FACP FACC CCDS Aug 14, 2019 18:32
[2019-08-14] MEDS: APIXABAN 5 MG (ELIQUIS) TABLET PO SCH (20:01)
[2019-08-14] MEDS ORDERED: diphenhydrAMINE 25 MG TAB (BENADRYL) PO PRN (20:15)
[2019-08-14] MEDS ORDERED: HYDROcodone/APAP 5 MG/325 MG (LORTAB) TAB PO PRN (20:15)
[2019-08-14] MEDS ORDERED: ALPRAZolam 0.25 MG (XANAX) TAB PO PRN (20:15)
[2019-08-14] MEDS ORDERED: MELATONIN 3 MG TABLET PO PRN (20:15)
[2019-08-14] MEDS ORDERED: guaiFENesin/CODEINE (ROBITUSSIN AC) 10ML UDC PO PRN (20:15)
[2019-08-14] MEDS ORDERED: LOPERAMIDE 2 MG (IMODIUM) TABLET PO PRN (20:15)
[2019-08-14] MEDS ORDERED: DOCUSATE SODIUM 100 MG (COLACE) CAP PO PRN (20:15)
[2019-08-14] MEDS: BENZONATATE 100 MG (TESSALON) CAPSULE PO SCH ×2 (20:50→20:51)
[2019-08-14] MEDS: SENNA W/DOCUSATE (SENOKOT S) TABLET PO SCH (21:16)
--- NOTE | 2019-08-14 23:13 | NUR ---
PT CONVERTED TO NSR
[2019-08-15] VITALS (11 sets, daily range): BP systolic 124–172; BP diastolic 76–96
--- NOTE | 2019-08-15 04:09 | Pulmonary Consultation ---
History of Present Illness History of Present Illness Date Seen by Provider: Aug 15, 2019 Time Seen by Provider: 04:06 Date of Admission History of Present Illness 54yo with hx of CAD, tobacco use (quit 4months ago) presented to ED via EMS secondary to left sided 10/10 CP radiating to left shoulder, palpitations, and worsening SOB with loose nonproductive cough and wheezing. pt was found to have Afib RVR upon admission. Pt also states he has had fever and chills. He reports nausea and diarrhea since Monday. He denies any vomiting. Allergies and Home Medications Allergies Coded Allergies: levofloxacin (Verified Adverse Reaction, Unknown, nausea, vomiting, shaking, 08/14/19) Home Medications Bupropion HCl 150 Mg Tab.er.24h, 150 MG PO DAILY, (Reported) Past Abpltyw-Nixrju-Zfdjit Hx Patient Social History Alcohol Use: Regular Use Alcohol Beverage of Choice: Beer, Whiskey Recreational Drug Use: No Smoking Status: Former Smoker Type Used: Cigarettes Former Smoker, Quit: Mar 26, 2019 Recent Foreign Travel: No Contact w/Someone Who Travel: No Recent Infectious Disease Expo: No Recent Hopitalizations: No Physical Abuse: No Sexual Abuse: No Mistreated: No Fear: No Immunizations Up To Date Date of Influenza Vaccine: Apr 26, 2019 Seasonal Allergies Seasonal Allergies: No Past Medical History Surgeries: Yes (R KNEE, ) Appendectomy, Orthopedic Respiratory: No Cardiac: No Neurological: No Genitourinary: No Gastrointestinal: No Musculoskeletal: No Endocrine: No HEENT: No Cancer: No Psychosocial: Yes Depression Integumentary: No Blood Disorders: No Review of Systems Time Seen by Provider: 06:31 Constitutional: No: Fever, Chills, Sweats, Weakness, Malaise, Other Eyes: No: Pain, Vision change, Conjunctivae inflammation, Eyelid inflammation, Other, Redness ENT: Nose congestion; No: Ear pain, Ear discharge, Nose pain, Nose discharge, Mouth pain, Mouth swelling, Throat pain, Throat swelling, Other Respiratory: Cough, Dry, Shortness of breath, SOB with excertion, Wheezing, Sputum Cardiovascular: No: Chest Pain, Palpitations, Orthopnea, Paroxysmal Noc. Dyspnea, Edema, Lt Headedness, Other Gastrointestinal: No: Nausea, Vomiting, Abdominal Pain, Diarrhea, Constipation, Melena, Hematochezia, Other Sepsis Event Evaluation Height, Weight, BMI Height: '" Weight: lbs. oz. kg; 26.72 BMI Method: Exam Exam Vital Signs Date Time Temp Pulse Resp B/P (MAP) Pulse Ox O2 Delivery O2 Flow Rate FiO2 08/15/19 02:00 77 30 137/96 (110) 97 Nasal Cannula 2.00 08/15/19 01:00 75 08/15/19 00:10 Nasal Cannula 2.00 08/15/19 00:00 78 34 127/83 (98) 97 Nasal Cannula 2.00 08/14/19 23:45 36.8 81 18 123/75 (91) 97 Nasal Cannula 2.00 08/14/19 23:08 60 08/14/19 22:00 78 35 128/85 (99) 97 Nasal Cannula 2.00 08/14/19 21:00 Nasal Cannula 2.00 08/14/19 20:54 80 20 113/84 (94) Nasal Cannula 2.00 08/14/19 20:03 Nasal Cannula 2.00 08/14/19 20:00 75 24 122/94 (103) 98 Nasal Cannula 2.00 08/14/19 19:50 35.9 08/14/19 19:00 85 08/14/19 18:00 85 31 126/76 (93) 97 Nasal Cannula 2.00 08/14/19 17:00 98 32 145/97 (113) 96 Nasal Cannula 2.00 08/14/19 16:00 105 39 153/98 (116) 86 Nasal Cannula 2.00 08/14/19 15:44 37.1 08/14/19 15:42 98 Nasal Cannula 2.00 08/14/19 15:04 36.6 115 20 140/80 97 Nasal Cannula 2.00 08/14/19 15:00 89 18 125/86 (99) 98 Nasal Cannula 2.00 08/14/19 15:00 Nasal Cannula 2.00 08/14/19 15:00 98 Nasal Cannula 2.00 08/14/19 14:54 119 08/14/19 14:42 115 20 140/80 97 08/14/19 11:49 36.6 156 22 131/100 (110) 97 I & O 08/15/19 07:00 Intake Total 4610 ml Output Total 430 ml Balance 4180 ml Height & Weight Height: '" Weight: lbs. oz. kg; 26.72 BMI Method: General Appearance: WD/WN, Anxious HEENT: PERRL/EOMI, Pharynx Normal; No Moist Mucous Membranes Neck: Full Range of Motion, Normal Inspection, Non Tender, Supple Respiratory: Crackles, Decreased Breath Sounds, Rhonci, Wheezing Cardiovascular: Irregularly Irregular, Tachycardia Capillary Refill: Less Than 3 Seconds Peripheral Pulses: 2+ Radial Pulses (R), 2+ Radial Pulses (L) Extremity: Normal Capillary Refill, Normal Inspection, Non Tender, No Pedal Edema Neurologic/Psychiatric: Alert, Oriented x3 Skin: Normal Color, Warm/Dry Results Lab Laboratory Tests 08/14/19 11:36 Assessment/Plan Assessment/Plan PNA with acute bronchitis with sepsis -Continue Rocephin and Azithromycin -Campos cultures pending -Influenza Neg -LABS PENDING -MRSA nasal swab pending -Duoneb -Add prednisone taper Afib RVR -Cardizem gtt -Cardiology following -Echo pending -Eliquis Increased bili probably secondary to sepsis -LFTs are normal and no abdominal pain -Check US of Abd Nonanion gapped metabolic acidosis -Monitor -Lactic acid is normal -IVF JON GORMAN DO Aug 15, 2019 04:08
[2019-08-15 04:13] LABS: BASOPHILS % (AUTO) 0 % (0-10); EOSINOPHILS # (AUTO) 0.1 10^3/uL (0.0-0.3); EOSINOPHILS % (AUTO) 1 % (0-10); HEMATOCRIT 41 % (40-54); HEMOGLOBIN 13.9 G/DL (13.3-17.7); LYMPHOCYTES # (AUTO) 3.2 X 10^3 (1.0-4.0); LYMPHOCYTES % (AUTO) 18 % (12-44); MEAN CORPUSCULAR HEMOGLOBIN 31 PG (25-34); MEAN CORPUSCULAR HGB CONC 34 G/DL (32-36); MEAN CORPUSCULAR VOLUME 92 FL (80-99); MEAN PLATELET VOLUME 11.7 FL (7.4-10.4); MONOCYTES # (AUTO) 1.8 X 10^3 (0.0-1.0); MONOCYTES % (AUTO) 10 % (0-12); NEUTROPHILS % (AUTO) 72 % (42-75); PLATELET COUNT 195 10^3/uL (130-400); RED CELL DISTRIBUTION WIDTH 12.8 % (10.0-14.5); WHITE BLOOD COUNT 18.1 10^3/uL (4.3-11.0)
[2019-08-15] MEDS: 1/2 NS W/KCL 20 MEQ/L 1,000 ML IV SCH (04:16)
[2019-08-15 04:50] LABS: ALANINE AMINOTRANSFERASE 20 U/L (0-55); ALBUMIN 3.3 GM/DL (3.2-4.5); ALKALINE PHOSPHATASE 119 U/L (40-136); BILIRUBIN,TOTAL 0.8 MG/DL (0.1-1.0); BUN/CREATININE RATIO 22; CALCIUM 8.5 MG/DL (8.5-10.1); CARBON DIOXIDE 18 MMOL/L (21-32); CHLORIDE 108 MMOL/L (98-107); CHOLESTEROL 129 MG/DL (< 200); CREATININE SERUM 0.69 MG/DL (0.60-1.30); GFR ESTIMATED > 60; GLUCOSE 95 MG/DL (70-105); HDL CHOLESTEROL 39 MG/DL (40-60); POTASSIUM 4.5 MMOL/L (3.6-5.0); SODIUM 135 MMOL/L (135-145); TOTAL PROTEIN 5.8 GM/DL (6.4-8.2); TRIGLYCERIDES 91 MG/DL (<150); VLDL CHOLESTEROL 18 MG/DL (5-40)
[2019-08-15] MEDS: cefTRIAXone FOR IV USE 1,000 MG in WATER (STERILE) FOR INJECTION 10 ML IV SCH (05:11)
[2019-08-15] MEDS ORDERED: SODIUM PHOSPHATE INJ 30 MM in NS (IVPB) 250 ML IV ONE (06:30)
[2019-08-15] MEDS ORDERED: LACTATED RINGERS 0 ML IV ONE (06:32)
[2019-08-15] MEDS: RT-ALBUTEROL/IPRATROPIUM 3 ML (DUONEB) VIAL INH SCH ×4 (06:52→18:13)
--- NOTE | 2019-08-15 07:20 | Diagnostic Imaging Report ---
EXAM: CHEST 1 VIEW, AP/PA ONLY INDICATION: Chest pain. Sepsis. COMPARISON: 08/14/2019. FINDINGS: Normal heart size and pulmonary vascularity. No dense consolidation, pleural effusion or pneumothorax. No acute osseous findings. No significant change. IMPRESSION: No acute cardiopulmonary findings. Dictated by: Dictated on workstation # [id number]
--- NOTE | 2019-08-15 08:00 | NUR ---
THIS NURSE NOTIFIED DR WRIGHT PT CONVERTED TO NRS. PT CARDIZEM DRIP HAS BEEN DISCONTINUED. ORDERS GIVEN FOR ORAL CARDIZEM. DR WRIGHT SAID TO DC DRIP 15 MINUTES AFTER GIVING ORAL CARDIZEM. ORDERS WRITTEN DOWN AND REPEATED BACK TO DR WRIGHT. Addendum: 08/15/19 at 1935 by RAFAEL MONAHAN RN THIS NURSE NOTIFIED DR WRIGHT PT CONVERTED TO NRS. PT CARDIZEM DRIP HAS BEEN DISCONTINUED ON EMAR. ORDERS GIVEN FOR ORAL CARDIZEM. DR WRIGHT SAID TO DC DRIP 15 MINUTES AFTER GIVING ORAL CARDIZEM. ORDERS WRITTEN DOWN AND REPEATED BACK TO DR WRIGHT.
[2019-08-15] MEDS: predniSONE 10 MG TAB PO SCH (08:21)
[2019-08-15] MEDS: BENZONATATE 100 MG (TESSALON) CAPSULE PO SCH ×3 (08:21→21:37)
[2019-08-15] MEDS: APIXABAN 5 MG (ELIQUIS) TABLET PO SCH ×2 (08:21→21:37)
[2019-08-15] MEDS: ASPIRIN E.C. 81 MG (ECOTRIN) TAB PO SCH (08:21)
[2019-08-15] MEDS: AZITHROMYCIN 250 MG TAB (ZITHROMAX) PO SCH (08:21)
[2019-08-15] MEDS: LACTATED RINGERS 1,000 ML IV SCH ×2 (08:22→23:33)
[2019-08-15] MEDS: ACETAMINOPHEN 500 MG TAB (TYLENOL) PO PRN ×2 (08:22→23:28)
[2019-08-15] MEDS: SENNA W/DOCUSATE (SENOKOT S) TABLET PO SCH ×2 (08:22→21:00)
--- NOTE | 2019-08-15 08:52 | Diagnostic Imaging Report ---
INDICATION: PROCEDURE: Ultrasound abdomen complete. TECHNIQUE: Multiple real-time grayscale images were obtained of the abdomen in various projections. FINDINGS: Liver is normal in size without focal lesions. There is hepatopetal flow in the main portal vein. Common bile duct measures 6 mm. There is no cholelithiasis, gallbladder wall thickening or pericholecystic fluid. There is some prominence of pancreatic duct up to 4.4 mm. Spleen is normal in size. Aorta is nonaneurysmal. IVC is patent. There is a 2 cm left renal cyst. There is a small amount of fluid about the right kidney. There is no other ascites. IMPRESSION: Nonspecific prominence of pancreatic duct up to 4.4 mm. Small amount of fluid about the right kidney. 2 cm left renal cyst. Otherwise unremarkable abdominal ultrasound. Recommend clinical correlation and if warranted follow up with CT. Dictated by: Dictated on workstation # [id number]
[2019-08-15 09:05] LABS: AMPHETAMINE SCREEN, URINE NEGATIVE (NEGATIVE); BENZODIAZEPINES SCREEN URINE POSITIVE (NEGATIVE); CANNABINOID SCREEN, URINE POSITIVE (NEGATIVE); COCAINE SCREEN URINE NEGATIVE (NEGATIVE); METHAMPHETAMINE SCREEN URINE S NEGATIVE (NEGATIVE); OPIATE SCREEN URINE POSITIVE (NEGATIVE)
[2019-08-15 09:06] LABS: BARBITURATE SCREEN URINE NEGATIVE (NEGATIVE); METHADONE STAT NEGATIVE (NEGATIVE); OXYCODONE STAT NEGATIVE (NEGATIVE); PROPOXYPHENE STAT NEGATIVE (NEGATIVE); TRICYCLIC ANTIDEPRESSANTS SCRE NEGATIVE (NEGATIVE)
--- NOTE | 2019-08-15 10:46 | Progress Note - Cardiology ---
Cardiology SOAP Progress Note Subjective: Does not report cp Some shortness of breath with activity Gen malaise No n/v/d No palp or syncope Objective: I&O/Vital Signs 08/14/19 08/14/19 08/15/19 08/15/19 23:08 23:45 00:00 00:10 Temp 36.8 Pulse 60 81 78 Resp 18 34 B/P (MAP) 123/75 (91) 127/83 (98) Pulse Ox 97 97 O2 Delivery Nasal Cannula Nasal Cannula Nasal Cannula O2 Flow Rate 2.00 2.00 2.00 08/15/19 08/15/19 08/15/19 08/15/19 01:00 02:00 04:00 04:00 Temp 36.3 Pulse 75 77 79 Resp 30 29 B/P (MAP) 137/96 (110) 124/88 (100) Pulse Ox 97 97 O2 Delivery Nasal Cannula Nasal Cannula O2 Flow Rate 2.00 2.00 08/15/19 08/15/19 08/15/19 08/15/19 04:27 06:00 06:52 07:00 Pulse 72 74 Resp 32 B/P (MAP) 138/85 (102) Pulse Ox 97 95 O2 Delivery Nasal Cannula Nasal Cannula Room Air O2 Flow Rate 2.00 2.00 08/15/19 08/15/19 08/15/19 08/15/19 07:00 08:00 08:00 09:00 Pulse 79 82 78 Resp 32 20 30 B/P (MAP) 141/84 (103) 126/76 (93) 133/88 (103) Pulse Ox 95 96 96 O2 Delivery Nasal Cannula Nasal Cannula Nasal Cannula Nasal Cannula O2 Flow Rate 2.00 2.00 2.00 2.00 08/15/19 00:00 Intake Total 3610 ml Output Total 430 ml Balance 3180 ml Constitutional: AAO x 3, well-developed, well-nourished Respiratory: No accessory muscle use, No respiratory distress; chest expansion is symmetric, chest is bilaterally symmetric, rhonchi (scattered), other (diminshed) Cardiovascular: irregularly irregular; No JVD; S1 and S2 Gastrointestional: No tender; soft, round, audible bowel sounds Extremities: no lower extremity edema bilateral Neurologic/Psychiatric: grossly intact (moves all extremities) Skin: No rash on exposed areas, No ulcerations on exposed areas Results/Procedures: Labs Laboratory Tests 08/14/19 11:36: White Blood Count 23.5H, Red Blood Count 5.41, Hemoglobin 16.4, Hematocrit 49, Mean Corpuscular Volume 91, Mean Corpuscular Hemoglobin 30, Mean Corpuscular Hemoglobin Concent 33, Red Cell Distribution Width 12.6, Platelet Count 208, Mean Platelet Volume 11.5H, Neutrophils (%) (Auto) 77H, Lymphocytes (%) (Auto) 11L, Monocytes (%) (Auto) 11, Eosinophils (%) (Auto) 0, Basophils (%) (Auto) 0, Neutrophils # (Auto) 18.2H, Lymphocytes # (Auto) 2.6, Monocytes # (Auto) 2.6H, Eosinophils # (Auto) 0.0, Basophils # (Auto) 0.0, Neutrophils % (Manual) 85, Lymphocytes % (Manual) 9, Monocytes % (Manual) 6, Blood Morphology Comment NORMAL, Prothrombin Time 14.6, INR Comment 1.1, Activated Partial Thromboplast Time 32, Sodium Level 139, Potassium Level 4.3, Chloride Level 106, Carbon Dioxide Level 23, Anion Gap 10, Blood Urea Nitrogen 18, Creatinine 0.90, Estimat Glomerular Filtration Rate > 60, BUN/Creatinine Ratio 20, Glucose Level 116H, Calcium Level 9.7, Corrected Calcium 9.9, Total Bilirubin 1.3H, Aspartate Amino Transf (AST/SGOT) 16, Alanine Aminotransferase (ALT/SGPT) 27, Alkaline Phosphatase 132, Troponin I < 0.028, Total Protein 7.0, Albumin 3.8 08/14/19 11:45: Lactic Acid Level 1.46 08/14/19 12:25: Urine Color YELLOW, Urine Clarity CLEAR, Urine pH 6.0, Urine Specific [place] >=1.030, Urine Protein TRACEH, Urine Glucose (UA) NEGATIVE, Urine Ketones NEGATIVE, Urine Nitrite NEGATIVE, Urine Bilirubin 1+H, Urine Urobilinogen 4.0, Urine Leukocyte Esterase NEGATIVE, Urine RBC (Auto) NEGATIVE, Urine RBC NONE, Urine WBC NONE, Urine Crystals PRESENTH, Urine Amorphous Sediment FEW KASEY URATESH, Urine Bacteria FEWH, Urine Casts NONE, Urine Mucus MODERATEH, Urine Culture Indicated CULTURE PENDING 08/14/19 17:35: Troponin I < 0.028 08/15/19 03:09: White Blood Count 18.1H, Red Blood Count 4.49, Hemoglobin 13.9, Hematocrit 41, Mean Corpuscular Volume 92, Mean Corpuscular Hemoglobin 31, Mean Corpuscular Hemoglobin Concent 34, Red Cell Distribution Width 12.8, Platelet Count 195, Mean Platelet Volume 11.7H, Neutrophils (%) (Auto) 72, Lymphocytes (%) (Auto) 18, Monocytes (%) (Auto) 10, Eosinophils (%) (Auto) 1, Basophils (%) (Auto) 0, Neutrophils # (Auto) 13.0H, Lymphocytes # (Auto) 3.2, Monocytes # (Auto) 1.8H, Eosinophils # (Auto) 0.1, Basophils # (Auto) 0.0, Sodium Level 135, Potassium Level 4.5, Chloride Level 108H, Carbon Dioxide Level 18L, Anion Gap 9, Blood Urea Nitrogen 15, Creatinine 0.69, Estimat Glomerular Filtration Rate > 60, BUN/Creatinine Ratio 22, Glucose Level 95, Calcium Level 8.5, Corrected Calcium 9.1, Phosphorus Level 1.6L, Total Bilirubin 0.8, Aspartate Amino Transf (AST/SGOT) 18, Alanine Aminotransferase (ALT/SGPT) 20, Alkaline Phosphatase 119, B-Type Natriuretic Peptide 73.5, Total Protein 5.8L, Albumin 3.3, Triglycerides Level 91, Cholesterol Level 129, LDL Cholesterol Direct 70, VLDL Cholesterol 18, HDL Cholesterol 39L, Procalcitonin 0.29H, Thyroid Stimulating Hormone (TSH) 0.85 08/15/19 08:14: Urine Opiates Screen POSITIVEH, Urine Oxycodone Screen NEGATIVE, Urine Methadone Screen NEGATIVE, Urine Propoxyphene Screen NEGATIVE, Urine Barbiturates Screen NEGATIVE, Ur Tricyclic Antidepressants Screen NEGATIVE, Urine Phencyclidine Screen NEGATIVE, Urine Amphetamines Screen NEGATIVE, Urine Methamphetamines Sc reen NEGATIVE, Urine Benzodiazepines Screen POSITIVEH, Urine Cocaine Screen NEG ATIVE, Urine Cannabinoids Screen POSITIVEH Microbiology 08/14/19 Urine Culture - Final, Complete NO GROWTH 08/14/19 Blood Culture - Preliminary, Resulted No growth 08/14/19 Influenza Types A,B Antigen (QING) - Final, Complete Laboratory Tests 08/14/19 11:36 08/15/19 03:09 A/P: Assessment: New onset a-fib/flutter with RVR (first dx on EKG 08-14-2019). Now NSR Chest pain of undetermined etiology, no evidence of ACS Systemic infection (as indicated by fever and leucocytosis) managed by the Hospitalist service. Pneumonia suspected HTN HLD TSH normal (0.85) on 08/15/19 Tobacco use - quit 4 months ago Daily ETOH usage Depression Plan: * Change to oral, long-acting dilt * OAC for stroke prophylaxis with Eliquis * Echocardiogram to eval structure and function * Monitor lab - replace electrolytes as indicated * Management of systemic infection per Hospitalist/Medical service * I discussed his case with Dr Dia of Pul Svce today VIVIENNE WRIGHT MD FACP FACC CCDS Aug 15, 2019 10:46
--- NOTE | 2019-08-15 12:58 | History & Physical-Hospitalist ---
History of Present Illness HPI/Chief Complaint Guru Stokes is a 54-year-old male with no significant past medical history of presented with left-sided chest pain. He reports that the pain is sharp and pleuritic. He denies any radiation of the pain. He also reports that he had been having fevers and chills at home. He denies any cough or sputum production. He denies any nausea, vomiting, or abdominal pain. He reports some diarrhea at home. He reports dysuria. He reports feeling very weak recently. He reports shortness of breath. He has a long smoking history but quit about 4 months ago. Source: patient Exam Limitations: no limitations Date Seen 08/15/19 Time Seen by a Provider: 08:55 Attending Physician Daxa Housotn MD PCP Cara Hernandez Referring Physician Date of Admission Aug 14, 2019 at 14:00 Home Medications & Allergies Home Medications Reviewed patient Home Medication Reconciliation performed by pharmacy medication reconciliations diamond powder technician and/or nursing. Patients Allergies have been reviewed. Allergies Allergies Coded Allergies levofloxacin (Verified Adverse Reaction, Unknown, nausea, vomiting, shaking, 08/14/19) Past Zdobjny-Yffboa-Mhvsti Hx Past Med/Social Hx: Reviewed Nursing Past Med/Soc Hx Patient Social History Alcohol Use: Regular Use Alcohol Beverage of Choice: Beer, Whiskey Recreational Drug Use: No Smoking Status: Former Smoker Former Smoker, Quit: Mar 26, 2019 Type Used: Cigarettes Recent Foreign Travel: No Contact w/other who traveled: No Recent Hopitalizations: No Recent Infectious Disease Expo: No Immunizations Up To Date Date of Influenza Vaccine: Apr 26, 2019 Seasonal Allergies Seasonal Allergies: No Past Medical History Surgeries: Appendectomy, Orthopedic Psychosocial: Depression History of Blood Disorders: No Review of Systems Constitutional: chills, fever, weakness EENTM: no symptoms reported Respiratory: short of breath Cardiovascular: chest pain Gastrointestinal: diarrhea Genitourinary: dysuria Musculoskeletal: no symptoms reported Skin: no symptoms reported Psychiatric/Neurological: No Symptoms Reported Physical Exam Physical Exam Vital Signs Vital Signs - First Documented 08/14/19 11:49 Temp 36.6 Pulse 156 Resp 22 B/P (MAP) 131/100 (110) Pulse Ox 97 Capillary Refill : Less Than 3 Seconds Height, Weight, BMI Height: '" Weight: lbs. oz. kg; 26.72 BMI Method: General Appearance: No Apparent Distress, WD/WN HEENT: PERRL/EOMI, Pharynx Normal Neck: Normal Inspection, Supple Respiratory: Lungs Clear, Normal Breath Sounds, No Respiratory Distress Cardiovascular: Regular Rate, Rhythm, No Edema, No Murmur Gastrointestinal: Normal Bowel Sounds, Non Tender, Soft Extremity: Normal Inspection, Non Tender, No Pedal Edema Neurologic/Psychiatric: Alert, Oriented x3, No Motor/Sensory Deficits, Normal Mood/Affect Skin: Normal Color, Warm/Dry Results Results/Procedures Labs Laboratory Tests 08/14/19 11:36 08/15/19 03:09 Patient resulted labs reviewed. Imaging: Reviewed Imaging Films, Reviewed Imaging Report Assessment/Plan Admission Diagnosis atrial flutter with rapid ventricular response Admission Status: Inpatient Order (span 2 midnights) Reason for Inpatient Admission: atrial flutter requiring IV medications and further evaluation Assessment and Plan Atrial flutter with rapid ventricular response Started on Cardizem, converted to normal sinus rhythm Continue oral Cardizem started on Eliquis for stroke prophylaxis Cardiology following, appreciate assistance Echocardiogram ordered SIRS reported fevers at home WBC elevated at 23 with tachycardia and tachypnea on admission chest x-ray with no acute abnormalities Urinalysis negative for UTI Blood cultures with no growth today procalcitonin mildly elevated Obtain CT chest for further evaluation Tobacco abuse Polysubstance abuse Nicotine patch as needed Recommend cessation of illicit drugs DVT prophylaxis: Already receiving therapeutic anticoagulation Diagnosis/Problems Diagnosis/Problems (1) Atrial flutter with rapid ventricular response Status: Acute (2) SIRS (systemic inflammatory response syndrome) Status: Acute (3) Tobacco abuse Status: Chronic (4) Polysubstance abuse Status: Chronic Clinical Quality Measures DVT/VTE Risk/Contraindication: Risk Factor Score Per Nursin RFS Level Per Nursing on Admit: 4+=Very High DAXA HOUSTON MD Aug 15, 2019 12:58
[2019-08-15] MEDS ORDERED: IOHEXOL 350 MG/ML 100 ML (OMNIPAQUE 350) VIAL IV ONE (13:30)
[2019-08-15] MEDS ORDERED: HOLD METFORMIN - RECEIVED CONTRAST 20 ML VIAL IV SCH (13:30)
[2019-08-15] MEDS ORDERED: NS 100 ML (IVPB) BAG IV ONE (13:30)
--- NOTE | 2019-08-15 15:10 | Diagnostic Imaging Report ---
EXAMINATION: CT Chest with intravenous contrast. TECHNIQUE: Multiple contiguous axial images were obtained through the chest after the uneventful administration of intravenous contrast. All CT scans use one or more of the following dose optimizing techniques: automated exposure control, MA and/or KvP adjustment based on a patient size and exam type, or iterative reconstruction. HISTORY: Pneumonia. COMPARISON: None available. FINDINGS: There is consolidation in the lingula with air bronchograms and surrounding groundglass in keeping with pneumonia. There is a small left pleural effusion with overlying atelectasis. There is a 3 mm nodule in the right upper lobe (series 3, image 36). No edema is seen. No pleural effusion. No pneumothorax. No suspicious nodules. Heart size is normal. There are mild coronary artery calcifications. No pericardial effusion. Aorta is normal in caliber. There is no axillary or supraclavicular lymphadenopathy. There is no mediastinal lymphadenopathy. Limited views of the upper abdomen show a cyst in the left kidney. There are no suspicious osseus lesions. IMPRESSION: 1. Pneumonia in the lingula with small left pleural effusion. Follow-up to resolution is recommended. Dictated by: Dictated on workstation # [id number]
[2019-08-16] VITALS: BP 151/83
[2019-08-16 02:45] VITALS: BP 139/83
[2019-08-16 03:22] LABS: BASOPHILS % (AUTO) 0 % (0-10); EOSINOPHILS % (AUTO) 0 % (0-10); HEMATOCRIT 37 % (40-54); HEMOGLOBIN 12.5 G/DL (13.3-17.7); LYMPHOCYTES # (AUTO) 2.3 X 10^3 (1.0-4.0); LYMPHOCYTES % (AUTO) 16 % (12-44); MEAN CORPUSCULAR HEMOGLOBIN 31 PG (25-34); MEAN CORPUSCULAR HGB CONC 34 G/DL (32-36); MEAN CORPUSCULAR VOLUME 91 FL (80-99); MEAN PLATELET VOLUME 11.3 FL (7.4-10.4); MONOCYTES # (AUTO) 1.2 X 10^3 (0.0-1.0); MONOCYTES % (AUTO) 8 % (0-12); NEUTROPHILS # (AUTO) 10.7 X 10^3 (1.8-7.8); NEUTROPHILS % (AUTO) 75 % (42-75); PLATELET COUNT 208 10^3/uL (130-400); RED CELL DISTRIBUTION WIDTH 12.3 % (10.0-14.5); WHITE BLOOD COUNT 14.3 10^3/uL (4.3-11.0)
[2019-08-16 03:45] LABS: BUN/CREATININE RATIO 24; CARBON DIOXIDE 18 MMOL/L (21-32); CHLORIDE 109 MMOL/L (98-107); GFR ESTIMATED > 60; GLUCOSE 116 MG/DL (70-105); MAGNESIUM 1.9 MG/DL (1.6-2.4); PHOSPHORUS 2.5 MG/DL (2.3-4.7); POTASSIUM 3.5 MMOL/L (3.6-5.0); SODIUM 138 MMOL/L (135-145)
[2019-08-16 04:00] VITALS: BP 142/82
--- NOTE | 2019-08-16 04:28 | Pulmonary Progress Note ---
Subjective Time Seen by a Provider: 04:22 Subjective/Events-last exam No complications note. Pt wants to go home. Sepsis Event Evaluation Height, Weight, BMI Height: '" Weight: lbs. oz. kg; 26.72 BMI Method: Focused Exam Lactate Level 08/14/19 11:45: Lactic Acid Level 1.46 Time of Focused Exam: 13:17 Exam Exam Vital Signs Date Time Temp Pulse Resp B/P (MAP) Pulse Ox O2 Delivery O2 Flow Rate FiO2 08/16/19 01:00 65 08/16/19 00:00 36.8 08/16/19 00:00 98 Room Air 08/16/19 00:00 75 27 151/83 (105) 97 Room Air 08/15/19 21:00 97 Room Air 08/15/19 20:00 97 Room Air 08/15/19 20:00 37.1 08/15/19 20:00 96 18 149/87 (107) 96 Room Air 08/15/19 19:00 103 08/15/19 18:13 98 Room Air 08/15/19 16:00 90 27 172/93 (119) 97 Room Air 08/15/19 16:00 98 Room Air 08/15/19 15:50 37.1 08/15/19 14:23 97 Room Air 08/15/19 12:40 85 08/15/19 12:00 90 27 162/95 (117) 96 Room Air 08/15/19 12:00 36.6 08/15/19 12:00 98 Room Air 08/15/19 11:13 95 Room Air 08/15/19 10:42 Room Air 08/15/19 10:00 78 23 149/87 (107) 98 Nasal Cannula 2.00 08/15/19 09:00 78 30 133/88 (103) 96 Nasal Cannula 2.00 08/15/19 09:00 97 Room Air 08/15/19 08:00 Nasal Cannula 2.00 08/15/19 08:00 82 20 126/76 (93) 96 Nasal Cannula 2.00 08/15/19 07:00 79 32 141/84 (103) 95 Nasal Cannula 2.00 08/15/19 07:00 74 08/15/19 06:52 95 Room Air 08/15/19 06:00 72 32 138/85 (102) 97 Nasal Cannula 2.00 08/15/19 04:27 Nasal Cannula 2.00 I & O 08/16/19 07:00 Intake Total 1400 ml Output Total 2025 ml Balance -625 ml Height & Weight Height: '" Weight: lbs. oz. kg; 26.72 BMI Method: General Appearance: No Apparent Distress, WD/WN HEENT: PERRL/EOMI, Pharynx Normal Neck: Normal Inspection, Supple Respiratory: No Respiratory Distress, Decreased Breath Sounds Cardiovascular: Regular Rate, Rhythm, No Edema, No Murmur Capillary Refill: Less Than 3 Seconds Peripheral Pulses: 2+ Radial Pulses (R), 2+ Radial Pulses (L) Extremity: Normal Inspection, Non Tender, No Pedal Edema Neurologic/Psychiatric: Alert, Oriented x3, No Motor/Sensory Deficits, Normal Mood/Affect Skin: Normal Color, Warm/Dry Results Lab Laboratory Tests 08/14/19 11:36 08/15/19 03:09 08/16/19 03:05 Assessment/Plan Assessment/Plan PNA with acute bronchitis with sepsis and small parapneumonic effusion -Currently on Rocephin and Azithromycin. Pt needs at least 7 days of total Abx -CT scan of chest shows Left lingula pneumonia with small parapneumonic effusion. -Campos cultures pending -Influenza Neg -LABS PENDING -MRSA nasal swab pending -Duoneb - prednisone taper Afib RVR -- Now sinus -Cardiology following -Echo pending -Eliquis Nonanion gapped metabolic acidosis -Monitor -Lactic acid is normal -IVF Hypokalemia -Monitor JON GORMAN DO Aug 16, 2019 04:28
[2019-08-16] MEDS ORDERED: KCL 20 MEQ TAB (K-DUR) PO ONE ×2 (04:30→06:48)
[2019-08-16] MEDS: cefTRIAXone FOR IV USE 1,000 MG in WATER (STERILE) FOR INJECTION 10 ML IV SCH (04:57)
[2019-08-16] MEDS: RT-ALBUTEROL/IPRATROPIUM 3 ML (DUONEB) VIAL INH SCH ×2 (06:45→10:40)
[2019-08-16 08:00] VITALS: BP 147/94
[2019-08-16] MEDS: ASPIRIN E.C. 81 MG (ECOTRIN) TAB PO SCH (08:52)
[2019-08-16] MEDS: BENZONATATE 100 MG (TESSALON) CAPSULE PO SCH (08:53)
[2019-08-16] MEDS: predniSONE 10 MG TAB PO SCH (08:53)
[2019-08-16] MEDS: AZITHROMYCIN 250 MG TAB (ZITHROMAX) PO SCH (08:53)
[2019-08-16] MEDS: APIXABAN 5 MG (ELIQUIS) TABLET PO SCH (08:53)
[2019-08-16] MEDS: SENNA W/DOCUSATE (SENOKOT S) TABLET PO SCH (08:56)
[2019-08-16] MEDS ORDERED: buPROPion SR 150 MG (WELLBUTRIN SR) TAB PO SCH (09:00)
[2019-08-16] MEDS ORDERED: buPROPion XL 150 MG (WELLBUTRIN XL) NON-FORM PO SCH (09:00)
[2019-08-16] MEDS ORDERED: PRED10TA22 PO (10:58)
[2019-08-16] MEDS ORDERED: DILT240C91 PO (10:58)
[2019-08-16] MEDS ORDERED: CEFD300C3 PO (10:58)
[2019-08-16] MEDS ORDERED: APIX5TAB PO (10:58)
[2019-08-16] MEDS ORDERED: AZIT250T12 PO (10:58)
--- NOTE | 2019-08-16 11:03 | NUR ---
CM FINALIZED DISCHARGE PLAN: Patient will be dismissing to home today, self care. 30 day free coupon was given to the patient et for new medication of Eliquis. Visited with the patient et his about his new medication of Eliquis. We discussed taking the medication as prescribed, increase risk of bleeding, what to watch for, et following up with his consumer affairs director/primary care physician for any concerns. Also talked about if he feels like he is having a medical emergency to report to the emergency room. Both patient et voiced understanding, readiness to get home, et had no further questions or concerns.
--- NOTE | 2019-08-16 11:05 | Discharge Summary ---
Discharge Summary Hospital Course Was the Problem List Reviewed?: Yes Problems/Dx: (1) Atrial flutter with rapid ventricular response Status: Acute (2) SIRS (systemic inflammatory response syndrome) Status: Resolved (3) Tobacco abuse Status: Chronic (4) Polysubstance abuse Status: Chronic (5) Pneumonia Status: Acute Qualifiers: Qualified Codes: J18.9 - Pneumonia, unspecified organism (6) Pulmonary nodule Status: Chronic Hospital Course Date of Admission: Aug 14, 2019 at 14:00 Admission Diagnosis : atrial flutter with rapid ventricular reponse Family Physician/Provider: Isa,Local Physician Date of Discharge: 08/16/19 Discharge Diagnosis: atrial flutter with rapid ventricular response, pneumonia Hospital Course: Guru Stokes is a 54-year-old male who was admitted with atrial flutter with rapid ventricular response. He was started on IV Cardizem and converted to normal sinus rhythm. He was continued on oral diltiazem and started on Eliquis for stroke prophylaxis. Cardiology assisted with his cares. He will follow up with them as an outpatient. His course was complicated by pneumonia and he was given a course of Omnicef and azithromycin to complete as an outpatient. He underwent a CT scan which revealed a 3 mm pulmonary nodule which will need to be followed up on as an outpatient. He will follow up with pulmonology. Labs and Pending Lab Test: Laboratory Tests 08/15/19 23:42: Troponin I < 0.028 08/16/19 03:05: White Blood Count 14.3H, Red Blood Count 4.06L, Hemoglobin 12.5L, Hematocrit 37L , Mean Corpuscular Volume 91, Mean Corpuscular Hemoglobin 31, Mean Corpuscular Hemoglobin Concent 34, Red Cell Distribution Width 12.3, Platelet Count 208, Mean Platelet Volume 11.3H, Neutrophils (%) (Auto) 75, Lymphocytes (%) (Auto) 16, Monocytes (%) (Auto) 8, Eosinophils (%) (Auto) 0, Basophils (%) (Auto) 0, Neutrophils # (Auto) 10.7H, Lymphocytes # (Auto) 2.3, Monocytes # (Auto) 1.2H, Eosinophils # (Auto) 0.0, Basophils # (Auto) 0.0, Sodium Level 138, Potassium Level 3.5L, Chloride Level 109H, Carbon Dioxide Level 18L, Anion Gap 11, Blood Urea Nitrogen 17, Creatinine 0.70, Estimat Glomerular Filtration Rate > 60, BUN/Creatinine Ratio 24, Glucose Level 116H, Calcium Level 9.0, Phosphorus Level 2.5, Magnesium Level 1.9 Microbiology 08/14/19 Urine Culture - Final, Complete NO GROWTH 08/14/19 Blood Culture - Preliminary, Resulted No growth 08/14/19 Influenza Types A,B Antigen (QING) - Final, Complete Home Meds Active Cefdinir 300 Mg Capsule 300 Mg PO BID 4 Days Prednisone 10 Mg Tab.ds.pk 10 Mg PO DAILY Take 6 tabs(60mg)daily,decrease by 1 tab(10MG)daily. Diltiazem 24Hr ER (Diltiazem HCl) 240 Mg Cap.er.24h 240 Mg PO DAILY 90 Days Eliquis (Apixaban) 5 Mg Tablet 5 Mg PO BID 90 Days Azithromycin 250 Mg Tablet 250 Mg PO DAILY 3 Days Reported Bupropion Xl (Bupropion HCl) 150 Mg Tab.er.24h 150 Mg PO DAILY Assessment/Pt Instructions take medications as prescribed. Complete her course of antibiotics even if you're feeling better. Taper her steroids as directed. Begin taking diltiazem and Eliquis for atrial fibrillation. Follow up with cardiology. Follow up with pulmonology. Discharge Planning: <30 minutes discharge planning Discharge Instructions Discharge Diet: Low Sodium Diet Activity as Tolerated: Yes Consultations cardiology, pulmonology Discharge Physical Examination Vital Signs Vital Signs Date Time Temp Pulse Resp B/P (MAP) Pulse Ox O2 Delivery O2 Flow Rate FiO2 08/16/19 10:41 96 Room Air 08/16/19 08:00 73 26 147/94 (111) 08/16/19 04:00 36.6 08/15/19 10:00 2.00 General Appearance: No Apparent Distress, WD/WN Respiratory: Lungs Clear, Normal Breath Sounds, No Respiratory Distress Cardiovascular: Regular Rate, Rhythm, No Edema, No Murmur Gastrointestinal: Normal Bowel Sounds, Non Tender, Soft Extremity: Normal Inspection, Non Tender, No Pedal Edema Skin: Normal Color, Warm/Dry Neurologic/Psychiatric: Alert, Oriented x3, No Motor/Sensory Deficits, Normal Mood/Affect Allergies: Coded Allergies: levofloxacin (Verified Adverse Reaction, Unknown, nausea, vomiting, shaking, 08/14/19) Copy Copies To 1: KATLYN LANCASTER Discharge Summary Date of Admission Aug 14, 2019 at 14:00 Date of Discharge Discharge Date: Aug 16, 2019 Discharge Time: 11:04 Admission Diagnosis atrial flutter with rapid ventricular response Consults/Procedures Consulations cardiology, pulmonology Discharge Diagnosis Atrial flutter with rapid ventricular response, pneumonia (1) Atrial flutter with rapid ventricular response Status: Acute (2) SIRS (systemic inflammatory response syndrome) Status: Resolved (3) Tobacco abuse Status: Chronic (4) Polysubstance abuse Status: Chronic (5) Pulmonary nodule Status: Chronic (6) Pneumonia Status: Acute Qualifiers: Qualified Codes: J18.9 - Pneumonia, unspecified organism Clinical Quality Measures DVT/VTE Risk/Contraindication: Risk Factor Score Per Nursin RFS Level Per Nursing on Admit: 4+=Very High YI HOUSTON MD Aug 16, 2019 11:05
[2019-08-16 12:22] VITALS: BP 147/94
--- NOTE | 2019-08-20 05:10 | Physician Query Clarification ---
PQ-Uncertain Diagnosis Admission/Discharge Admission Date: Aug 14, 2019 at 14:00 Discharge Date: Aug 16, 2019 at 11:45 The medical record reflects the following clinical scenario: History/Risk Factors: Chest pain, Fever Clinical Findings: Sepsis, SIRS, Pneumonia Treatment: IV antibiotics Question: Is [Sepsis] a clinically valid diagnosis? [Sepsis] was documented in the [08/16, 08/17 Pulmonology consultation, progress note] with no further documentation in the medical record. Please document a response in Progress Note or Discharge Summary. 1. Yes, clinically valid, condition resolved. 2. No, condition ruled out. 3. Other, with explanation of clinical findings. 4. Undetermined, no explanation for clinical findings. PHYSICIAN RESPONSE Diagnosis clinically valid: Yes, Conditon resolved Please remember a lack of response to the above will prompt a phone page by CD[facility]/Coding staff. In responding to this query, please exercise your independent professional judgment. The purpose of this communication is to more accurately reflect the c omplexity of your patients condition. The fact that a question is asked does not imply that any particular answer is desired or expected. Thank you for your timely response to this clarification. Requestors name: [Gwenariel ] Phone # [[phone] ] THIS PHYSICIAN QUERY FORM IS A PERMANENT PART OF THE MEDICAL RECORD ROXANNE MALIK Aug 20, 2019 05:10 YI HOUSTON MD Aug 29, 2019 15:19
--- OUTSIDE RECORDS SUMMARY | 2019-08-22 17:29 | XMS REPORT | CCD ---
Author Author MAY ZHONG Organization Unknown Address [address] [facility] [address] [place] [address] Care Team Providers Care Privacy Attorney Name Role Phone [facility] DO Attphys [facility], BRIDGER DO Prisurg Allergies Allergy Code Allergy Type Reaction Status No Known Allergies 0 Drug allergy Active Active Medications Unknown or Not Available. Problems Unknown or Not Available. Procedures Unknown or Not Available. Results Unknown or Not Available. Encounters Encounter Diagnosis Diagnosis Code Start Date Fractured dental restorative material with loss of material [id number] 04/20/2016 Function Status Unknown or Not Available. History of Immunizations Unknown or Not Available. Social History Smoking Status Code Start Date End Date Current every day smoker [id number] Vital Signs Unknown or Not Available. Function Status Unknown or Not Available. Goals Unknown or Not Available. ASSESSMENTS Unknown or Not Available. Health Concerns Section Unknown or Not Available.
--- OUTSIDE RECORDS SUMMARY | 2019-08-22 17:29 | XMS REPORT | Continuity of Care Document ---
Author Organization Unknown Address Unknown Phone Unavailable Allergies Active Description Code Type Severity Reaction Onset Reported/Identified Relationship to Patient Clinical Status Yes levofloxacin [id number] Drug Allergy Unknown nausea, vomitin 08/14/2019 Yes No Known Drug Allergies [id number] Drug Allergy Unknown N/A 08/14/2019 Medications There is no data. Problems Date Dx Coded Attending Type Code Diagnosis Diagnosed By 2018 ANURAG ZHONG DO Ot 453. 40 ACUTE VENOUS EMBOLISM THROMBOSIS [facility] 07/09/2018 ANURAG ZHONG DO Ot 453. 40 ACUTE VENOUS EMBOLISM THROMBOSIS [facility] 08/14/2019 ANURAG ZHONG DO Ot 453. 40 ACUTE VENOUS EMBOLISM THROMBOSIS [facility] 08/16/2019 YI HOUSTON MD Ot E78. 5 HYPERLIPIDEMIA, UNSPECIFIED 08/16/2019 YI HOUSTON MD Ot E87. 2 ACIDOSIS 08/16/2019 YI HOUSTON MD Ot F32. 9 MAJOR DEPRESSIVE DISORDER, SINGLE EPISOD 08/16/2019 YI HOUSTON MD Ot I10 ESSENTIAL (PRIMARY) HYPERTENSION 08/16/2019 CELSO PLATT, YI Anglin Ot I48. 92 UNSPECIFIED ATRIAL FLUTTER 08/16/2019 YI HOUSTON MD Ot J18. 9 PNEUMONIA, UNSPECIFIED ORGANISM 08/16/2019 YI HOUSTON MD Ot J20. 9 ACUTE BRONCHITIS, UNSPECIFIED 08/16/2019 YI HOUSTON MD Ot R07. 9 CHEST PAIN, UNSPECIFIED 08/16/2019 CELSO PLATT, YI M Ot Z72. 89 OTHER PROBLEMS RELATED TO LIFESTYLE 08/16/2019 CELSO PLATT, YI Anglin Ot Z87.891 PERSONAL HISTORY OF NICOTINE DEPENDENCE Procedures There is no data. Results Test Result Range Complete blood count (CBC) with automate d white blood cell (WBC) differential - 08/14/19 11:36 Blood leukocytes automated count (number/volume) 23.5 10*3/uL 4.3-11.0 Blood erythrocytes automated count (number/volume) 5.41 10*6/uL 4.35-5.85 Venous blood hemoglobin measurement (mass/volume) 16.4 g/dL 13.3-17.7 Blood hematocrit (volume fraction) 49 % 40-54 Automated erythrocyte mean corpuscular volume 91 [ foz_us] 80-99 Automated erythrocyte mean corpuscular h emoglobin (mass per erythrocyte) 30 pg 25-34 Automated erythrocyte mean corpuscular h emoglobin concentration measurement (mass/volume) 33 g/dL 32-36 Automated erythrocyte distribution width ratio 12. 6 % 10.0- 14.5 Automated blood platelet count (count/volume) 208 10*3/uL 130-400 Automated blood platelet mean volume measurement 11.5 [foz_us] 7.4-10.4 Automated blood neutrophils/100 leukocytes 77 % 42-75 Automated blood lymphocytes/100 leukocytes 11 % 12-44 Blood monocytes/100 leukocytes 11 % 0-12 Automated blood eosinophils/100 leukocytes 0 % 0-10 Automated blood basophils/100 leukocytes 0 % 0-10 Blood neutrophils automated count (number/volume) 18.2 10*3 1.8-7.8 Blood lymphocytes automated count (number/volume) 2.6 10*3 1.0-4.0 Blood monocytes automated count (number/volume) 2. 6 10*3 0.0-1.0 Automated eosinophil count 0.0 10*3/uL 0 .0-0.3 Automated blood basophil count (count/volume) 0.0 10*3/uL 0.0-0.1 Comprehensive metabolic panel - 08/14/19 11:36 Serum or plasma sodium measurement (moles/volume) 139 mmol/L 135-145 Serum or plasma potassium measurement (moles/volume) 4.3 mmol/L 3.6-5.0 Serum or plasma chloride measurement (moles/volume) 106 mmol/L 98-107 Carbon dioxide 23 mmol/L 21-32 Serum or plasma anion gap determination (moles/volume) 10 mmol/L 5-14 Serum or plasma urea nitrogen measurement (mass/volume ) 18 mg/dL 7-18 Serum or plasma creatinine measurement (mass/volume) 0.90 mg/dL 0.60-1.30 Serum or plasma urea nitrogen/creatinine mass ratio 20 NRG Serum or plasma creatinine measurement w ith calculation of estimated glomerular filtration rate > NRG Serum or plasma glucose measurement (mass/volume) 116 mg/dL 70-105 Serum or plasma calcium measurement (mass/volume) 9.7 mg/dL 8.5-10.1 Serum or plasma total bilirubin measurement (mass/volu me) 1.3 mg/dL 0.1-1.0 Serum or plasma alkaline phosphatase kei surement (enzymatic activity/volume) 132 U/L 40-136 Serum or plasma aspartate aminotransfera se measurement (enzymatic activity/volume) 16 U/L 5-34 Serum or plasma alanine aminotransferase measurement (enzymatic activity/volume) 27 U/L 0-55 Serum or plasma protein measurement (mass/volume) 7.0 g/dL 6.4-8.2 Serum or plasma albumin measurement (mass/volume) 3.8 g/dL 3.2-4.5 CALCIUM CORRECTED 9.9 mg/dL 8.5-10.1 PT panel in platelet poor plasma by coag ulation assay - 08/14/19 11:36 Prothrombin time (PT) in platelet poor plasma by coagu lation assay 14.6 s 12.2-14.7 INR in platelet poor plasma or blood by coagulation as say 1.1 0.8-1.4 Activated partial thromboplastin time (a PTT) in platelet poor plasma bycoagulation assay - 08/14/19 11:36 Activated partial thromboplastin time (a PTT) in platelet poor plasma bycoagulation assay 32 s 24-35 Manual absolute plasma cell count - 07/27 03/15 11:36 Blood monocytes/100 leukocytes 6 % NR Manual blood segmented neutrophils/100 leukocytes 85 % NR Manual blood lymphocytes/100 leukocytes 9 % NR Blood erythrocyte morphology finding identification NORMAL NR Influenza virus A and B antigen detectio n - 08/14/19 11:36 FLU RESULT NEGATIVE FOR INFLUENZA A AND B ANTIGENS BY IA NR Serum or plasma troponin i.cardiac measu rement (mass/volume) - 08/14/19 11:36 Serum or plasma troponin i.cardiac measurement (mass/v olume) < ng/mL <0.028 Blood lactic acid measurement (moles/vol ume) - 08/14/19 11:45 Blood lactic acid measurement (moles/volume) 1.46 mmol/L 0.50-2.00 Bacterial blood culture - 08/14/19 11:45 Bacterial blood culture NG NRG Bacterial blood culture - 08/14/19 12:06 Bacterial blood culture NG NRG Complete urinalysis with reflex to cultu re - 08/14/19 12:25 Urine color determination YELLOW NRG Urine clarity determination CLEAR NR G Urine pH measurement by test strip 6.0 5-9 Specific gravity of urine by test strip >= 1.016-1.022 Urine protein assay by test strip, semi-quantitative TRACE NEGATIVE Urine glucose detection by automated test strip NE GATIVE NEGATIVE Erythrocytes detection in urine sediment by light micr oscopy NEGATIVE NEGATIVE Urine ketones detection by automated test strip NE GATIVE NEGATIVE Urine nitrite detection by test strip NEGATIVE NEGATIVE Urine total bilirubin detection by test strip 1+ NEGATIVE Urine urobilinogen measurement by automated test strip (mass/volume) 4.0 mg/dL < = 1.0 Urine leukocyte esterase detection by dipstick NEG ATIVE NEGATIVE Automated urine sediment erythrocyte cou nt by microscopy (number/high power field) NONE NRG Automated urine sediment leukocyte count by microscopy (number/high power field) NONE NRG Bacteria detection in urine sediment by light microsco py FEW NRG Crystals detection in urine sediment by light microsco py PRESENT NRG Casts detection in urine sediment by light microscopy NONE NRG Mucus detection in urine sediment by light microscopy MODERATE NRG Complete urinalysis with reflex to culture CULTURE PENDING NRG Amorphous sediment detection in urine sediment by ligh t microscopy FEW KASEY URATES NRG Bacterial urine culture - 08/14/19 12:25 Bacterial urine culture NG NRG Serum or plasma troponin i.cardiac measu rement (mass/volume) - 08/14/19 17:35 Serum or plasma troponin i.cardiac measurement (mass/v olume) < ng/mL <0.028 Complete blood count (CBC) with automate d white blood cell (WBC) differential - 08/15/19 03:09 Blood leukocytes automated count (number/volume) 18.1 10*3/uL 4.3-11.0 Blood erythrocytes automated count (number/volume) 4.49 10*6/uL 4.35-5.85 Venous blood hemoglobin measurement (mass/volume) 13.9 g/dL 13.3-17.7 Blood hematocrit (volume fraction) 41 % 40-54 Automated erythrocyte mean corpuscular volume 92 [ foz_us] 80-99 Automated erythrocyte mean corpuscular h emoglobin (mass per erythrocyte) 31 pg 25-34 Automated erythrocyte mean corpuscular h emoglobin concentration measurement (mass/volume) 34 g/dL 32-36 Automated erythrocyte distribution width ratio 12. 8 % 10.0- 14.5 Automated blood platelet count (count/volume) 195 10*3/uL 130-400 Automated blood platelet mean volume measurement 11.7 [foz_us] 7.4-10.4 Automated blood neutrophils/100 leukocytes 72 % 42-75 Automated blood lymphocytes/100 leukocytes 18 % 12-44 Blood monocytes/100 leukocytes 10 % 0-12 Automated blood eosinophils/100 leukocytes 1 % 0-10 Automated blood basophils/100 leukocytes 0 % 0-10 Blood neutrophils automated count (number/volume) 13.0 10*3 1.8-7.8 Blood lymphocytes automated count (number/volume) 3.2 10*3 1.0-4.0 Blood monocytes automated count (number/volume) 1. 8 10*3 0.0-1.0 Automated eosinophil count 0.1 10*3/uL 0 .0-0.3 Automated blood basophil count (count/volume) 0.0 10*3/uL 0.0-0.1 Serum or plasma lithium measurement (mol es/volume) - 08/15/19 03:09 BNP PT 73.5 pg/mL <100.0 Serum or plasma phosphate measurement (m ass/volume) - 08/15/19 03:09 Serum or plasma phosphate measurement (mass/volume) 1.6 mg/dL 2.3-4.7 Comprehensive metabolic panel - 08/15/19 03:09 Serum or plasma sodium measurement (moles/volume) 135 mmol/L 135-145 Serum or plasma potassium measurement (moles/volume) 4.5 mmol/L 3.6-5.0 Serum or plasma chloride measurement (moles/volume) 108 mmol/L 98-107 Carbon dioxide 18 mmol/L 21-32 Serum or plasma anion gap determination (moles/volume) 9 mmol/L 5-14 Serum or plasma urea nitrogen measurement (mass/volume ) 15 mg/dL 7-18 Serum or plasma creatinine measurement (mass/volume) 0.69 mg/dL 0.60-1.30 Serum or plasma urea nitrogen/creatinine mass ratio 22 NRG Serum or plasma creatinine measurement w ith calculation of estimated glomerular filtration rate > NRG Serum or plasma glucose measurement (mass/volume) 95 mg/dL 70-105 Serum or plasma calcium measurement (mass/volume) 8.5 mg/dL 8.5-10.1 Serum or plasma total bilirubin measurement (mass/volu me) 0.8 mg/dL 0.1-1.0 Serum or plasma alkaline phosphatase kei surement (enzymatic activity/volume) 119 U/L 40-136 Serum or plasma aspartate aminotransfera se measurement (enzymatic activity/volume) 18 U/L 5-34 Serum or plasma alanine aminotransferase measurement (enzymatic activity/volume) 20 U/L 0-55 Serum or plasma protein measurement (mass/volume) 5.8 g/dL 6.4-8.2 Serum or plasma albumin measurement (mass/volume) 3.3 g/dL 3.2-4.5 CALCIUM CORRECTED 9.1 mg/dL 8.5-10.1 Lipid 1996 panel - 08/15/19 03:09 Serum or plasma triglyceride measurement (mass/volume) 91 mg/dL <150 Serum or plasma cholesterol measurement (mass/volume) 129 mg/dL < 200 Serum or plasma cholesterol in HDL measurement (mass/v olume) 39 mg/dL 40-60 Cholesterol in LDL [mass/volume] in serum or plasma by direct assay 70 mg/dL 1-129 Serum or plasma cholesterol in VLDL measurement (mass/ volume) 18 mg/dL 5-40 THYROID STIMULATING HORMONE - 08/15/19 0 3:09 THYROID STIMULATING HORMONE 0.85 u[iU]/mL 0.35-4.94 PROCALCITONIN (PCT) - 08/15/19 03:09 PROCALCITONIN (PCT) 0.29 ng/mL <0.10 Urine drug screening test - 08/15/19 08: 14 Urine phencyclidine detection by screening method NEGATIVE NEGATIVE Urine benzodiazepines detection by screening method POSITIVE NEGATIVE Urine cocaine detection NEGATIVE NEGATI VE Urine amphetamines detection by screening method N EGATIVE NEGATIVE Urine methamphetamine detection by screening method NEGATIVE NEGATIVE Urine cannabinoids detection by screening method P OSITIVE NEGATIVE Urine opiates detection by screening method POSITI VE NEGATIVE Urine barbiturates detection NEGATIVE N EGATIVE Screening urine tricyclic antidepressants detection NEGATIVE NEGATIVE Urine methadone detection by screening method NEGA TIVE NEGATIVE Urine oxycodone detection NEGATIVE NEGA TIVE Urine propoxyphene detection NEGATIVE N EGATIVE Serum or plasma troponin i.cardiac measu rement (mass/volume) - 08/15/19 23:42 Serum or plasma troponin i.cardiac measurement (mass/v olume) < ng/mL <0.028 Complete blood count (CBC) with automate d white blood cell (WBC) differential - 08/16/19 03:05 Blood leukocytes automated count (number/volume) 14.3 10*3/uL 4.3-11.0 Blood erythrocytes automated count (number/volume) 4.06 10*6/uL 4.35-5.85 Venous blood hemoglobin measurement (mass/volume) 12.5 g/dL 13.3-17.7 Blood hematocrit (volume fraction) 37 % 40-54 Automated erythrocyte mean corpuscular volume 91 [ foz_us] 80-99 Automated erythrocyte mean corpuscular h emoglobin (mass per erythrocyte) 31 pg 25-34 Automated erythrocyte mean corpuscular h emoglobin concentration measurement (mass/volume) 34 g/dL 32-36 Automated erythrocyte distribution width ratio 12. 3 % 10.0- 14.5 Automated blood platelet count (count/volume) 208 10*3/uL 130-400 Automated blood platelet mean volume measurement 11.3 [foz_us] 7.4-10.4 Automated blood neutrophils/100 leukocytes 75 % 42-75 Automated blood lymphocytes/100 leukocytes 16 % 12-44 Blood monocytes/100 leukocytes 8 % 0-12 Automated blood eosinophils/100 leukocytes 0 % 0-10 Automated blood basophils/100 leukocytes 0 % 0-10 Blood neutrophils automated count (number/volume) 10.7 10*3 1.8-7.8 Blood lymphocytes automated count (number/volume) 2.3 10*3 1.0-4.0 Blood monocytes automated count (number/volume) 1. 2 10*3 0.0-1.0 Automated eosinophil count 0.0 10*3/uL 0 .0-0.3 Automated blood basophil count (count/volume) 0.0 10*3/uL 0.0-0.1 Whole blood basic metabolic panel - 07/28 07/15 03:05 Serum or plasma sodium measurement (moles/volume) 138 mmol/L 135-145 Serum or plasma potassium measurement (moles/volume) 3.5 mmol/L 3.6-5.0 Serum or plasma chloride measurement (moles/volume) 109 mmol/L 98-107 Carbon dioxide 18 mmol/L 21-32 Serum or plasma anion gap determination (moles/volume) 11 mmol/L 5-14 Serum or plasma urea nitrogen measurement (mass/volume ) 17 mg/dL 7-18 Serum or plasma creatinine measurement (mass/volume) 0.70 mg/dL 0.60-1.30 Serum or plasma urea nitrogen/creatinine mass ratio 24 NRG Serum or plasma creatinine measurement w ith calculation of estimated glomerular filtration rate > NRG Serum or plasma glucose measurement (mass/volume) 116 mg/dL 70-105 Serum or plasma calcium measurement (mass/volume) 9.0 mg/dL 8.5-10.1 Serum or plasma phosphate measurement (m ass/volume) - 08/16/19 03:05 Serum or plasma phosphate measurement (mass/volume) 2.5 mg/dL 2.3-4.7 Magnesium - 08/16/19 03:05 Magnesium 1.9 mg/dL 1.6-2.4 Encounters ACCT No. Visit Date/Time Discharge Status Pt. Type Provider Facility Loc./Unit Complaint [id number] 03/06/2015 11:45:54 03/06/2015 23:59: 59 CLS Outpatient Donato Jacobson [id number] 02/18/2015 13:25:57 02/18/2015 23:59: 59 CLS Outpatient Donato Jacobson [id number] 02/13/2015 09:49:38 02/13/2015 23:59: 59 CLS Outpatient KylerjustinDonato [id number] 08/14/2019 14:00:00 020 11:45:00 DIS Inpatient CELSO PLATT, YI Anglin Via [facility] ICU A FIB,RVR,CP,SEPSIS PNA [id number] 02/26/2014 08:37:00 014 23:59:59 CLS Outpatient ANURAG ZHONG DO [facility] RAD CALF PAIN
--- OUTSIDE RECORDS SUMMARY | 2019-08-22 17:29 | XMS REPORT ---
Author Guru Sams Organization [facility] Address [address] [place], [place] [id number] Care Team Providers Care Forestry Conservation Worker Name Role Phone Donato Jacobson PCP Unavailable Allergies and Adverse Reactions Name Reaction Notes NO KNOWN DRUG ALLERGIES Plan of Treatment Not available. Medications Active Name Start Date Estimated Completion Date SIG Co mments dibucaine 1 % topical ointment a pply to affected area by external route 3 times a day omeprazole 20 mg oral capsule,delayed release(DR/EC) take 1 capsule (20 mg) by oral route once daily before a meal Flomax 0.4 mg oral capsule,extended release 24hr take 1 capsule (0.4 mg) by oral route once daily 1/2 hour following the same meal each day amitriptyline 25 mg oral tablet take 1 tablet (25 mg) by oral route once daily at bedtime Name Start Date Expiration Date SIG Comments hydrocodone-acetaminophen 5-325 mg oral tablet take 1 tablet by oral route every 6 hours as needed for pain Preparation H 0.25-14-74.9 % rectal ointment apply by rectal route daily as needed Problem List Description Status Onset Proctalgia Active 02/13/2015 Constipation Active 02/13/2015 Hemorrhoids Active 02/13/2015 Dyspepsia Active 02/13/2015 Abdominal pain Active 02/13/2015 Esophagitis Active 03/12/2015 IBS (irritable bowel syndrome) Active 5 Vital Signs Date Time BP-Sys(mm[Hg] BP-Clau(mm[Hg]) HR(bpm) RR(rpm) Temp WT HT HC BMI BSA BMI Percentile O2 Sat(%) 03/06/2015 12:08:00 PM 136 mmHg 83 mmHg 72 bpm 16 rpm 97.6 F 176 lbs 72 in 23.87 kg/m2 2.01 m2 02/13/2015 9:41:00 AM 141 mmHg 91 mmHg 61 bpm 16 rpm 97.1 F 175 lbs 72 in 23.734 kg/m 2.0081 m Social History Name Description Comments Tobacco Current every day smoker Alcohol Use - Occasional History of Procedures Date Ordered Description Order Status 02/13/2015 12:00 AM UPPER GI ENDOSCOPY PERFORMED Reviewed 02/13/2015 12:00 AM DIAGNOSTIC COLONOSCOPY Reviewed Results Summary Not available. History Of Immunizations Not available. History of Past Illness Name Date of Onset Comments Hemorrhoids, External Proctalgia 02/13/2015 Constipation 02/13/2015 Hemorrhoids 02/13/2015 Dyspepsia 02/13/2015 Abdominal pain 02/13/2015 Esophagitis 03/12/2015 IBS (irritable bowel syndrome) 03/12/2015 Abdominal Pain Feb 13 2015 9:18AM Dyspepsia Feb 13 2015 9:18AM Constipation Feb 13 2015 9:18AM Proctalgia Feb 13 2015 9:18AM Hemorrhoids Feb 13 2015 9:18AM Esophagitis Mar 06 2015 12:22PM IBS (irritable bowel syndrome) Mar 06 2015 12:22PM Proctalgia Mar 06 2015 12:22PM Payers Insurance Name Company Name Plan Name Plan Number Policy Number Josiah cy Group Number Start Date [facility] [id number] N/ A [facility] [id number] N/A History of Encounters Visit Date Visit Type Provider 03/06/2015 Office visit Donato Jacobson DO 02/16/2015 [facility] Donato Jacobson DO 02/13/2015 Office visit Donato Jacobson DO 11/18/2011 Office visit Donato Jacobson DO 11/02/2011 [facility] Donato Jacobson DO
--- OUTSIDE RECORDS SUMMARY | 2019-08-22 17:29 | XMS REPORT ---
Author Author [facility] Organization [facility] Address [address] [place], [place] [id number] Care Team Providers Care Machine Design Checker Name Role Phone PCP Unavailable Allergies and Adverse Reactions Name Reaction Notes NO KNOWN DRUG ALLERGIES Plan of Treatment Not available. Medications Active Name Start Date Estimated Completion Date SIG Co mments hydrocodone-acetaminophen 5-325 mg oral tablet take 1 tablet by oral route every 6 hours as needed for pain Preparation H 0.25-14-74.9 % rectal ointment apply by rectal route daily as needed Problem List Description Status Onset Proctalgia Active 02/13/2015 Constipation Active 02/13/2015 Hemorrhoids Active 02/13/2015 Dyspepsia Active 02/13/2015 Abdominal Pain Active 02/13/2015 Vital Signs Date Time BP-Sys(mm[Hg] BP-Clau(mm[Hg]) HR(bpm) RR(rpm) Temp WT HT HC BMI BSA BMI Percentile O2 Sat(%) 02/13/2015 9:41:00 AM 141 mmHg 91 mmHg 61 bpm 16 rpm 97.1 F 175 lbs 72 in 23.73 kg/m2 2.01 m2 Social History Name Description Comments Tobacco Current [...] Constipation 02/13/2015 Hemorrhoids 02/13/2015 Dyspepsia 02/13/2015 Abdominal Pain 02/13/2015 Abdominal Pain Feb 13 2015 9:18AM Dyspepsia Feb 13 2015 9:18AM Constipation Feb 13 2015 9:18AM Proctalgia Feb 13 2015 9:18AM Hemorrhoids Feb 13 2015 9:18AM Payers Insurance Name Company Name Plan Name Plan Number Policy Number Josiah cy Group Number Start Date [facility] [id number] N/ A [facility] [id number] N/A History of Encounters Visit Date Visit Type Provider 02/13/2015 Office visit Donato Jacobson DO 11/18/2011 Office visit Donato Jacobson DO 11/02/2011 [facility] Donato Jacobson DO
--- OUTSIDE RECORDS SUMMARY | 2019-08-22 17:29 | XMS REPORT ---
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
--- OUTSIDE RECORDS SUMMARY | 2019-08-22 17:29 | XMS REPORT | CCD ---
Author MAY Manrique Organization Unknown Address [address] [place], [place] [id number] Care Team Providers Care Shank Breaker Name Role Phone MARYBETH JEAN DO Marielos Attphys Vital Signs Vital Sign Value Unit Date/Time Recent/I nitial? Weight Measured 175 lbs 02/13/2015 10:37 Initial VS Height 72 in 02/13/2015 10:37 Initi al VS BMI (Body Mass Index) 23.73 kg/m^2 02/13/2015 10 :37 Initial VS BSA (Body Surface Area) 2.01 m^2 02/13/2015 10:37 Initial VS Allergies Allergy Code Allergy Type Reaction Status No Known Allergies 0 No known allergies Active Procedures Procedure Code Procedure Type Date COLONOSCOPY 4523 ICD-9 CM, Volume 3 02/16 EGD WITH CLOSED BIOPSY 4516 ICD-9 CM, Volume 3 02/16/2015 PATHOLOGY ORDER [id number] SNOMED CT 02/16/2015 History of Immunizations Unknown or Not Available. Problems Unknown or Not Available. Results Unknown or Not Available. Active Medications No Active Medications Medications Administered During Visit Unknown or Not Available. Encounters Encounter Diagnosis Diagnosis Code Start Date INT HEMORRHOID W O COMPL 4550 5 Social History Smoking Status Code Start Date End Date Current every day smoker [id number] Patient Decision Aids Patient Decision Aid EGD AND/OR COLONOSCOPY; AFTER THE PROCED URE Discharge Instructions You were admitted to [facility] on 02/16/2015 with a principal diagnosis of INT HEMORRHOID W O COMPL. You had the following procedures done: DIAGNOSTIC COLONOSCOPY EGD BIOPSY SINGLE/MULTIPLE You were discharged from [facility] on 02/16/2015. Should you have any questions prior to discharge, please contact a member of your healthcare team. If you have left the hospital and have any questions, please contact your primary care physician. Chief Complaint and Reason For Visit Chief Complaint Date of Onset EGD CSCOPE Function Status Unknown or Not Available. Plan of Care Unknown or Not Available. Referral/Transition of Care Unknown or Not Available.
--- OUTSIDE RECORDS SUMMARY | 2019-08-22 21:43 | XMS REPORT | Continuity of Care Document ---
Author Organization Unknown Address Unknown Phone Unavailable Allergies Active Description Code Type Severity Reaction Onset Reported/Identified Relationship to Patient Clinical Status Yes levofloxacin [id number] Drug Allergy Unknown nausea, vomitin 08/14/2019 Yes No Known Drug Allergies [id number] Drug Allergy Unknown N/A 08/14/2019 Medications There is no data. Problems Date Dx Coded Attending Type Code Diagnosis Diagnosed By 2018 ANURAG ZHONG DO Ot 453. 40 ACUTE VENOUS EMBOLISM THROMBOSIS [facility] 07/09/2018 ANURAG ZHONG DO Ot 453. 40 ACUTE VENOUS EMBOLISM THROMBOSIS [facility] 08/14/2019 ANURAG ZHONG DO Ot 453. 40 ACUTE VENOUS EMBOLISM THROMBOSIS [facility] 08/16/2019 YI HOUSTON MD Ot E78. 5 HYPERLIPIDEMIA, UNSPECIFIED 08/16/2019 YI HOUSTON MD Ot E87. 2 ACIDOSIS 08/16/2019 YI HOUSTON MD Ot F32. 9 MAJOR DEPRESSIVE DISORDER, SINGLE EPISOD 08/16/2019 YI HOUSTON MD Ot I10 ESSENTIAL (PRIMARY) HYPERTENSION 08/16/2019 CESLO PLATT, YI Anglin Ot I48. 92 UNSPECIFIED [...] Status Pt. Type Provider Facility Loc./Unit Complaint [id number] 03/06/2015 11:45:54 03/06/2015 23:59: 59 CLS Outpatient Donato Jacobson [id number] 02/18/2015 13:25:57 02/18/2015 23:59: 59 CLS Outpatient Donato Jacobson [id number] 02/13/2015 09:49:38 02/13/2015 23:59: 59 CLS Outpatient KylerjustinDonato [id number] 08/14/2019 14:00:00 020 11:45:00 DIS Inpatient CELSO PLATT, YI Anglin [facility] ICU A FIB,RVR,CP,SEPSIS PNA [id number] 02/26/2014 08:37:00 014 23:59:59 CLS Outpatient ANURAG ZHONG DO [facility] RAD CALF PAIN
== END 2019-08-16 11:45 | disposition home or self-care (01) | DRG 871 ==
LOC: EDUNIT# 11:30 → ER 11:32 → ICU 14:00
PROVIDERS: ADMIT Internal Medicine; ATTEND Internal Medicine
DX: A41.9 Sepsis, unspecified organism (principal); J18.9 Pneumonia, unspecified organism; I48.92 Unspecified atrial flutter; E87.2 Acidosis; I10 Essential (primary) hypertension; E78.5 Hyperlipidemia, unspecified; J20.9 Acute bronchitis, unspecified; F32.9 Major depressive disorder, single episode, unspecified; R07.9 Chest pain, unspecified; Z87.891 Personal history of nicotine dependence; Z72.89 Other problems related to lifestyle
CPT/HCPCS: 36415; 71045; 71260; 76700; 80048; 80053; 80061; 80306; 81000; 83605; 83735; 83880; 84100; 84145; 84443; 84484; 85007; 85025; 85027; 85610; 85730; 87040; 87088; 87804; 93005; 93306; 94640; 94664; 96361; 96365; 96366; 96367; 96368; 96375

== ENCOUNTER → 2019-11-15 | Outpatient (CLI) | payer BC ==
[~2019-11-15] MED LIST: APIX5TAB PO; AZIT250T12 PO; BUPR150T7 PO; CEFD300C3 PO; DILT240C91 PO; HOLD METFORMIN - RECEIVED CONTRAST 20 ML VIAL IV SCH; IOHEXOL 350 MG/ML 100 ML (OMNIPAQUE 350) VIAL IV ONE; NS 100 ML (IVPB) BAG IV ONE; PRED10TA22 PO
[2019-11-15 09:03] LABS: CREATININE SERUM 0.88 MG/DL (0.60-1.30); GFR ESTIMATED > 60
[2019-11-15 09:04] LABS: BUN/CREATININE RATIO 17
--- NOTE | 2019-11-15 09:50 | Diagnostic Imaging Report ---
EXAMINATION: CT Chest with intravenous contrast. TECHNIQUE: Multiple contiguous axial images were obtained through the chest after the uneventful administration of intravenous contrast. All CT scans use one or more of the following dose optimizing techniques: automated exposure control, MA and/or KvP adjustment based on a patient size and exam type, or iterative reconstruction. HISTORY: PNEUMONIA COMPARISON: 08/15/2019 FINDINGS: Previously seen consolidation in the lingula has markedly improved with only a small area of scarring or atelectasis remaining. Left-sided pleural effusion has resolved. No pneumothorax. No suspicious nodules. Heart size is normal. There are mild coronary artery calcifications. No pericardial effusion. Aorta is normal in caliber. There is no axillary or supraclavicular lymphadenopathy. There is no mediastinal lymphadenopathy. Limited views of the upper abdomen are unremarkable. There are no suspicious osseus lesions. IMPRESSION: 1. Marked improvement in lingular pneumonia and resolved left pleural effusion with only a small amount of atelectasis or scarring remaining. Dictated by: Dictated on workstation # [id number]
== END ==
LOC: RAD 08:33
PROVIDERS: ATTEND Nurse Practitioner Family
DX: J18.8 Other pneumonia, unspecified organism (principal)
CPT/HCPCS: 36415; 71260; 82565; 84520

== ENCOUNTER → 2019-12-17 | Outpatient (CLI) | payer BC ==
[~2019-12-17] VITALS: Ht 182.2 cm; Wt 90.8 kg
[~2019-12-17] MED LIST changes: +CATHETER FLUSH 10 ML SYR IV PRN; -HOLD METFORMIN - RECEIVED CONTRAST 20 ML VIAL IV SCH; -IOHEXOL 350 MG/ML 100 ML (OMNIPAQUE 350) VIAL IV ONE; -NS 100 ML (IVPB) BAG IV ONE; +REGADENOSON 0.4 MG/5 ML SYR (LEXISCAN) IV ONE
[2019-12-17 09:09] VITALS: BP 158/81
--- NOTE | 2019-12-17 15:45 | STRESS TEST ---
DATE OF SERVICE: 12/17/2019 RESTING AND POST REGADENOSON TECHNETIUM-99M TETROFOSMIN SPECT CT IMAGING ORDERING PHYSICIAN: Pamela Evans APRN PRIMARY PHYSICIAN: Cara Hernandez APRN CLINICAL DIAGNOSIS: Chest discomfort. Baseline images were carried out after injection of 10.4 mCi of technetium-99m Tetrofosmin. This was followed by 0.4 mg regadenoson and 30.2 mCi of technetium-99m Tetrofosmin. The electrocardiogram showed sinus rhythm with isolated premature ventricular contractions. The electrocardiogram did not change significantly with regadenoson infusion. The patient did not report any symptoms. Review of images at rest and following stress does not indicate any significant perfusion defects consistent with myocardial ischemia or infarction. Gated images show normal global left ventricular systolic function with normal regional wall motion. Left ventricular ejection fraction is calculated to be 56%. Left ventricular end diastolic volume is 75 mL. TID is absent (1.03). CONCLUSIONS: 1. No evidence of any significant myocardial ischemia or infarction on this study. 2. Normal regional wall motion. 3. Normal global left ventricular systolic function with a calculated ejection fraction of 56%. Job ID: [id number] DocumentID: [id number] Dictated Date: 12/17/2019 15:23:45 Side Laster Staple Date: 12/17/2019 15:44:43 Dictated By: VIVIENNE WRIGHT MD, MA, FACP, FACC,
== END ==
LOC: CARD 07:47
PROVIDERS: ATTEND Nurse Practitioner Family
DX: I48.91 Unspecified atrial fibrillation (principal)
CPT/HCPCS: 78452; 93017; A9502

== ENCOUNTER → 2022-10-28 | Outpatient (CLI) | payer BC, OTHER ==
[~2022-10-28] MED LIST changes: +BUPR150T24 PO; -BUPR150T7 PO; -CATHETER FLUSH 10 ML SYR IV PRN; +IOHEXOL 350 MG/ML 100 ML (OMNIPAQUE 350) VIAL IV ONE; +NS 100 ML (IVPB) BAG IV ONE; -REGADENOSON 0.4 MG/5 ML SYR (LEXISCAN) IV ONE
[2022-10-28 08:27] LABS: CREATININE SERUM 1.03 MG/DL (0.60-1.30)
--- NOTE | 2022-10-31 13:03 | Diagnostic Imaging Report ---
EXAMINATION: CTA of the coronary arteries. TECHNIQUE: Contrast enhanced thin section helical images were obtained through the heart and coronary arteries with intravenous contrast timed for the optimal opacification of the coronary arterial structures per gated CTA protocol. Post-processing, reconstructions and interpretation of angiographic images of the vessels was performed. 3D MIP reconstructions were performed and reviewed. All CT scans use one or more of the following dose optimizing techniques: automated exposure control, MA and/or KvP adjustment based on a patient size and exam type, or iterative reconstruction. HISTORY: Atrial flutter COMPARISON: None available. FINDINGS: Left main coronary artery is normal. Left anterior descending artery is normal. Circumflex artery is normal. Right coronary artery is obscured by motion. Left atrium is normal in size. No left atrial appendage thrombus. The coronary arteries are right dominant. There is no anomalous coronary artery origin or course. There is no myocardial bridging. There is no ventricular dilation or hypertrophy. Both atria are normal in size. Aorta is normal in caliber. There is no edema or pneumonia. No pleural effusion. No pneumothorax. No suspicious nodules. No pericardial effusion. There is no mediastinal lymphadenopathy. There are no suspicious osseus lesions. IMPRESSION: 1. Normal coronary arteries. The right coronary artery is obscured by motion. 2. Normal size of left atrium without left atrial appendage thrombus. Dictated by: Dictated on workstation # [id number]
== END ==
LOC: RAD 10:45
PROVIDERS: ATTEND Internal Medicine Cardiovascular Disease
DX: I48.92 Unspecified atrial flutter (principal); I48.91 Unspecified atrial fibrillation
CPT/HCPCS: 36415; 75572; 82565; 84520

== ENCOUNTER → 2022-10-28 | Outpatient (CLI) | payer BC, OTHER ==
[~2022-10-28] MED LIST changes: +CATHETER FLUSH 10 ML SYR IVP PRN; -IOHEXOL 350 MG/ML 100 ML (OMNIPAQUE 350) VIAL IV ONE; -NS 100 ML (IVPB) BAG IV ONE; +REGADENOSON 0.4 MG/5 ML SYR (LEXISCAN) IV ONE
[2022-10-28 08:57] VITALS: BP 124/83
== END ==
LOC: CARD 07:04
PROVIDERS: ATTEND Nurse Practitioner Family
DX: I25.10 Atherosclerotic heart disease of native coronary artery without angina pectoris (principal)
CPT/HCPCS: 78452; 93017

== ENCOUNTER 2022-11-11 06:54 | Day surgery (SDC) | payer OTHER ==
[~2022-11-11] VITALS: Ht 182.9 cm; Wt 89.3 kg
[2022-11-11] VITALS (12 sets, daily range): BP systolic 96–119; BP diastolic 49–94
[~2022-11-11 06:54] MED LIST changes: -CATHETER FLUSH 10 ML SYR IVP PRN; -REGADENOSON 0.4 MG/5 ML SYR (LEXISCAN) IV ONE
[2022-11-11] MEDS ORDERED: NS IV 1000 ML 1,000 ML IV SCH (07:00)
[2022-11-11] MEDS ORDERED: NS IV 1000 ML 1,000 ML ONE (07:02)
[2022-11-11 07:22] LABS: HEMATOCRIT 48 % (40-54); HEMOGLOBIN 16.4 g/dL (13.3-17.7); MEAN CORPUSCULAR HEMOGLOBIN 31 pg (25-34); MEAN CORPUSCULAR HGB CONC 34 g/dL (32-36); MEAN CORPUSCULAR VOLUME 92 fL (80-99); MEAN PLATELET VOLUME 11.1 fL (9.0-12.2); PLATELET COUNT 221 10^3/uL (130-400); WHITE BLOOD COUNT 9.8 10^3/uL (4.3-11.0)
[2022-11-11 07:32] LABS: POTASSIUM 4.3 MMOL/L (3.6-5.0)
[2022-11-11 07:33] LABS: ALBUMIN 3.9 GM/DL (3.2-4.5)
[2022-11-11 07:34] LABS: CALCIUM 8.8 MG/DL (8.5-10.1)
[2022-11-11 07:35] LABS: TOTAL PROTEIN 6.2 GM/DL (6.4-8.2)
[2022-11-11 07:36] LABS: INR 1.3 (0.8-1.4); PROTHROMBIN TIME PATIENT 16.1 SEC (12.2-14.7)
[2022-11-11 07:37] LABS: BILIRUBIN,TOTAL 0.6 MG/DL (0.1-1.0)
[2022-11-11 07:38] LABS: CREATININE SERUM 0.92 MG/DL (0.60-1.30)
[2022-11-11] MEDS ORDERED: RIVA20TA PO (07:49)
[2022-11-11] MEDS ORDERED: LISI10TA25 PO (07:49)
[2022-11-11] MEDS ORDERED: DILT120T11 PO (07:49)
[2022-11-11] MEDS ORDERED: FLEC50TA PO (07:49)
[2022-11-11] MEDS ORDERED: proPOfol 200 MG/20 ML (DIPRIVAN) VIAL IV ONE (08:40)
--- NOTE | 2022-11-11 10:04 | Anesthesia-General Post-Op ---
MAC Patient Condition Mental Status/LOC: Same as Preop Cardiovascular: Satisfactory Nausea/Vomiting: Absent Respiratory: Satisfactory Pain: Controlled Complications: Absent Post Op Complications Complications None Follow Up Care/Instructions Patient Instructions None needed. Anesthesiology Discharge Order Discharge Order Patient is doing well, no complaints, stable vital signs, no apparent adverse anesthesia problems. No complications reported per nursing. LINO KOLB CRNA November 11, 2022 10:04
--- NOTE | 2022-11-11 14:47 | OPERATIVE REPORT ---
DATE OF SERVICE: 11/11/2022 EXTERNAL ELECTRICAL CARDIOVERSION REPORT PREOPERATIVE DIAGNOSIS: Atrial fibrillation. POSTOPERATIVE DIAGNOSIS: Sinus rhythm. PROCEDURE: External electrical cardioversion. The patient is a 57-year-old gentleman with atrial fibrillation, who has been fully anticoagulated without any interruption for several months. External electrical cardioversion was carried out today after having obtained an informed consent. DESCRIPTION OF PROCEDURE: [facility] The nurse data technician delivered short-acting anesthesia. External 120 joule shock was delivered, which did not convert him to sinus rhythm. 200 joules of synchronized shock was then delivered through external patches, which restored sinus rhythm. He tolerated the procedure well. Job ID: [id number] DocumentID: [id number] Dictated Date: 11/11/2022 08:54:27 Cream Beater Date: 11/11/2022 14:44:00 Dictated By: VIVIENNE WRIGHT MD; BILL; FACP; FACC;
== END 2022-11-11 10:50 | disposition home or self-care (01) ==
LOC: CATH 06:54
PROVIDERS: ATTEND Internal Medicine Cardiovascular Disease
DX: I48.0 Paroxysmal atrial fibrillation (principal); I10 Essential (primary) hypertension; E78.2 Mixed hyperlipidemia; F17.210 Nicotine dependence, cigarettes, uncomplicated; I25.10 Atherosclerotic heart disease of native coronary artery without angina pectoris; Z79.01 Long term (current) use of anticoagulants
CPT/HCPCS: 36415; 80053; 80061; 85027; 85610; 85730; 87081; 92960; 93005